=== PATIENT | male | born 1970 | race African-American/Black ===

== ENCOUNTER 2017-02-22 15:02 | Inpatient (IN) | payer OTHER ==
[2017-02-22] VITALS (7 sets, daily range): BP systolic 117–147; BP diastolic 64–93
[~2017-02-22] VITALS: Ht 177.8 cm; Wt 86.2 kg
--- NOTE | 2017-02-22 15:15 | Emergency Room Report ---
History of Present Illness General Chief Complaint: Abdominal Pain Source: Patient Present Illness HPI 46 YO Male presents to the ED C/O nausea and umbilical pain x 4 days with increased in pain, radiation to the right quadrant, and vomiting x 1 day. pt. rates pain as 8/10 in severity sharp in nature, and tenderness. denies blood in the vomit reports just acid. denies constipation or diarrhea. pt. denies hx of GERD denies fevers, reports chills. Denies CP, Palpitations, LOC, AMS, dizziness , Changes in Vision, Sensation, paresthesias, or a sudden severe headache. Allergies: Coded Allergies: No Known Allergies (Unverified , 02/22/17) Patient History Past Medical History: see triage record Past Surgical History: none Pertinent Family History: none Immunizations: UTD Reviewed Nursing Documentation: PMH: Agreed, PSxH: Agreed Nursing Documentation-PMH Past Medical History: No Stated History Review of Systems All Other Systems: negative except mentioned in HPI Physical Exam Vital Signs Date Time Temp Pulse Resp B/P Pulse Ox O2 Delivery O2 Flow Rate FiO2 02/22/17 15:11 98.1 92 20 160/54 98 Room Air Sp02 EP Interpretation: reviewed, abnormal - BP is elevated General Appearance: no apparent distress, alert, GCS 15, non-toxic Head: normocephalic, atraumatic Eyes: bilateral eye PERRL, bilateral eye normal inspection ENT: hearing grossly normal, normal pharynx, no angioedema, normal voice Neck: full range of motion, supple/symm/no masses Respiratory: chest non-tender, lungs clear, normal breath sounds, speaking full sentences Cardiovascular #1: regular rate, rhythm, no edema Gastrointestinal: normal bowel sounds, soft, no guarding, no rebound, tenderness - RLQ TTP, no peritoneal signs, no guarding. Rectal: deferred Genitourinary: normal inspection, no CVA tenderness Musculoskeletal: back normal, gait/station normal, normal range of motion, non- tender, no calf tenderness Neurologic: alert, oriented x3, responsive, motor strength/tone normal, sensory intact, speech normal Psychiatric: judgement/insight normal, memory normal, mood/affect normal Skin: normal color, no rash, warm/dry, well hydrated Lymphatic: no adenopathy Medical Decision Making PA Attestation Dr. stroud is my supervising Physician whom patient management has been discussed with. Diagnostic Impression: Primary Impression: Appendicitis, acute Qualified Codes: K35.80 - Unspecified acute appendicitis ER Course 46 YO Male presents to the ED C/O nausea and umbilical pain x 4 days with increased in pain, radiation to the right quadrant, and vomiting x 1 day. pt. rates pain as 8/10 in severity sharp in nature, and tenderness. denies blood in the vomit reports just acid. denies constipation or diarrhea. pt. denies hx of GERD denies fevers, reports chills. Ddx considered but are not limited to Diverticulitis, acute appendicitis, diarrhea,UC, PUD, GE, pancreatitis, gallstone Vital signs: are WNL, pt. is afebrile H&PE are most consistent with possible acute appendicitis ORDERS: -CBC: elevated WBC's at 12.5 - CMP: mild hyponatremia and chloride ( pt. was given fluids) - lipase: WNL -UA: rbc's otherwise unremarkable -EK BPM NSR, no acute ST changes, pt. not given ASA- interpreted by Dr. Fagan - CT Abdomen and Pelvis with contrast: Acute appendicitis without perf or abscess per radiology report. ED INTERVENTIONS: -- 1000NS - 20mg Pepcid IV - 3.75 G Zosyn IV -Pt. was offered pain medication but declined, pt. also declined anti-emetic. - General Surgery Consult: Dr. Olivarez DISCHARGE: At this time pt. is stable for d/c to home. Will provide printed patient care instructions, and any necessary prescriptions. Care plan and follow up instructions have been discussed with the patient prior to discharge. Labs Test 02/22/17 15:12 02/22/17 16:07 Urine Color Brown Urine Appearance Clear Urine pH 5 (4.5-8.0) Urine Specific [place] 1.020 (1.005-1.035) Urine Protein 2+ (NEGATIVE) Urine Glucose (UA) Negative (NEGATIVE) Urine Ketones 3+ (NEGATIVE) Urine Occult Blood Negative (NEGATIVE) Urine Nitrite Negative (NEGATIVE) Urine Bilirubin Negative (NEGATIVE) Urine Urobilinogen 4 MG/DL (0.0-1.0) Urine Leukocyte Esterase 1+ (NEGATIVE) Urine RBC 0-2 /HPF (0 - 0) Urine WBC 2-4 /HPF (0 - 0) Urine Squamous Epithelial Cells None /LPF (NONE/OCC) Urine Amorphous Sediment Few /LPF (NONE) Urine Bacteria Few /HPF (NONE) Urine Mucus Few /LPF (NONE/OCC) White Blood Count 12.0 K/UL (4.8-10.8) Red Blood Count 5.35 M/UL (4.70-6.10) Hemoglobin 16.9 G/DL (14.2-18.0) Hematocrit 47.8 % (42.0-52.0) Mean Corpuscular Volume 89 FL (80-99) Mean Corpuscular Hemoglobin 31.5 PG (27.0-31.0) Mean Corpuscular Hemoglobin Concent 35.3 G/DL (32.0-36.0) Red Cell Distribution Width 12.7 % (11.6-14.8) Platelet Count 167 K/UL (150-450) Mean Platelet Volume 12.1 FL (6.5-10.1) Neutrophils (%) (Auto) 68.3 % (45.0-75.0) Lymphocytes (%) (Auto) 20.7 % (20.0-45.0) Monocytes (%) (Auto) 9.0 % (1.0-10.0) Eosinophils (%) (Auto) 0.3 % (0.0-3.0) Basophils (%) (Auto) 1.7 % (0.0-2.0) Sodium Level 134 mEQ/L (135-145) Potassium Level 3.8 mEQ/L (3.4-4.9) Chloride Level 91 mEQ/L (98-107) Carbon Dioxide Level 26 mEQ/L (20-30) Anion Gap 17 (5-15) Blood Urea Nitrogen 16 mg/dL (7-23) Creatinine 1.2 mg/dL (0.7-1.2) Estimat Glomerular Filtration Rate > 60 mL/min (>60) Glucose Level 99 mg/dL (74-106) Calcium Level 10.4 mg/dL (8.6-10.2) Total Bilirubin 0.8 mg/dL (0.0-1.2) Aspartate Amino Transf (AST/SGOT) 27 U/L (5-40) Alanine Aminotransferase (ALT/SGPT) 26 U/L (3-41) Alkaline Phosphatase 66 U/L (40-129) Total Protein 8.8 g/dL (6.6-8.7) Albumin 4.4 g/dL (3.5-5.2) Globulin 4.4 g/dL Albumin/Globulin Ratio 1.0 (1.0-2.7) Lipase 24 U/L (< 60) EKG Diagnostic Results EP Interpretation: Dr. Fagan Rate: normal - 77 BPM Rhythm: NSR ST Segments: no acute changes ASA given to the pt in ED: No Last Vital Signs Date Time Temp Pulse Resp B/P Pulse Ox O2 Delivery O2 Flow Rate FiO2 02/22/17 15:11 98.1 92 20 160/54 98 Room Air Disposition: ADMITTED INPATIENT Condition: Serious Physician Consult: Darlene Arizmendi February 22, 2017 15:15
[2017-02-22 16:04] LABS: APPEARANCE,URINE CLEAR; KETONES,URINE 3+ (NEGATIVE); LEUKOCYTE ESTERASE ,URINE 1+ (NEGATIVE); NITRITE,URINE NEGATIVE (NEGATIVE); PH,URINE 5 (4.5-8.0); PROTEIN,URINE 2+ (NEGATIVE); UROBILINOGEN,URINE 4 MG/DL (0.0-1.0)
[2017-02-22 16:30] LABS: BACTERIA,URINE FEW /HPF; RBC,URINE 0-2 /HPF (0 - 0)
[2017-02-22 16:31] LABS: AMORPHOUS SEDIMENT,UR FEW /LPF; MUCUS,URINE FEW /LPF (NONE/OCC)
[2017-02-22 16:42] LABS: BASOPHILS % (AUTO) 1.7 % (0.0-2.0); EOSINOPHILS % (AUTO) 0.3 % (0.0-3.0); LYMPHOCYTES % (AUTO) 20.7 % (20.0-45.0); MEAN CORPUSCULAR HEMOGLOBIN 31.5 PG (27.0-31.0); MEAN CORPUSCULAR HGB CONC 35.3 G/DL (32.0-36.0); MEAN CORPUSCULAR VOLUME 89 FL (80-99); MEAN PLATELET VOLUME 12.1 FL (6.5-10.1); NEUTROPHILS % (AUTO) 68.3 % (45.0-75.0); PLATELET COUNT 167 K/UL (150-450); RED BLOOD COUNT 5.35 M/UL (4.70-6.10); RED CELL DISTRIBUTION WIDTH 12.7 % (11.6-14.8)
[2017-02-22] MEDS ORDERED: Famotidine 20 MG/ 2ML VIAL IVP ONE (17:00)
[2017-02-22 17:17] LABS: ALANINE AMINOTRANSFERASE 26 U/L (3-41); ANION GAP 17 (5-15); ASPARTATE AMINO TRANSFERASE 27 U/L (5-40); CALCIUM 10.4 mg/dL (8.6-10.2); CARBON DIOXIDE 26 mEQ/L (20-30); CHLORIDE 91 mEQ/L (98-107); CREATININE 1.2 mg/dL (0.7-1.2); GLOMERULAR FILTRATION RATE > 60 mL/min (>60); HEMOLYSIS 8; LIPASE 24 U/L (< 60); POTASSIUM 3.8 mEQ/L (3.4-4.9); SODIUM 134 mEQ/L (135-145); TOTAL PROTEIN 8.8 g/dL (6.6-8.7)
[2017-02-22] MEDS ORDERED: Zosyn 3.375gm inj ONE (19:05)
[2017-02-22] MEDS ORDERED: Piperacillin/Tazobactam 3.375 GM in NS 110 ML IVPB ONE (19:15)
[2017-02-22] MEDS ORDERED: Neostigmine 1mg/ml 10ml Inj ONE (20:00)
[2017-02-22] MEDS ORDERED: Midazolam 2mg/2ml Inj ONE (20:00)
[2017-02-22] MEDS ORDERED: Succinylcholine 20mg/ml 10ml vial ONE (20:00)
[2017-02-22] MEDS ORDERED: Sterile Water Irrig 1000ml IRRIG ONE (20:00)
[2017-02-22] MEDS ORDERED: NS Irrig 1000ml ONE (20:00)
[2017-02-22] MEDS ORDERED: fentaNYL 100 mcg/2 mL IV ONE (20:00)
[2017-02-22] MEDS ORDERED: Zemuron 50mg/5ml Inj IV ONE (20:00)
[2017-02-22] MEDS ORDERED: Morphine Sulfate 10mg/ml Inj ONE (20:00)
[2017-02-22] MEDS ORDERED: Propofol 10mg/ml 20ml IV ONE (20:00)
[2017-02-22] MEDS ORDERED: LR 1000ml ONE (20:00)
[2017-02-22] MEDS ORDERED: Ketorolac 30mg Inj ONE (20:00)
[2017-02-22] MEDS ORDERED: Glycopyrrolate 0.2mg/ml 1ml Vial ONE (20:00)
--- NOTE | 2017-02-22 20:16 | Pre-Procedure Note/Attestation ---
Pre-Procedure Note/Attestation Complete Prior to Procedure Planned Procedure: not applicable Procedure Narrative: Laparoscopic appendectomy possible open Indications for Procedure Pre-Operative Diagnosis: Acute appendicitis Attestation I attest that I discussed the nature of the procedure; its benefits; risks and complications; and alternatives (and the risks and benefits of such alternatives ), prior to the procedure, with the patient (or the patient's legal retail sales representative). I attest that, if there was a reasonable possibility of needing a blood transfusion, the patient (or the patient's legal retail sales representative) was given the [facility] standardized written summary, pursuant to the Dinesh Donald Blood Safety Act ([place] Health and Safety Code # 1645, as amended). I attest that I re-evaluated the patient just prior to the surgery and that there has been no change in the patient's H&P, except as documented below: CANDIE DRIVER February 22, 2017 20:16
[2017-02-22] MEDS ORDERED: Bupivacaine w/Epi 0.25% 30ml Vial INJ ONE (20:31)
[2017-02-22] MEDS ORDERED: Bacitracin 50000 Units Vial ONE (20:31)
--- NOTE | 2017-02-22 21:14 | Anethesia Preoperative Eval ---
Anesthesia Pre-op PMH/ROS General Date of Evaluation: February 22, 2017 Time of Evaluation: 20:08 Anesthesiologist: Robby ASA Score: ASA 2 Mallampati Score Class I : Soft palate, uvula, fauces, pillars visible Class II: Soft palate, uvula, fauces visible Class III: Soft palate, base of uvula visible Class IV: Only hard plate visible Mallampati Classification: Class II Surgeon: Sher Diagnosis: Acute appendicitis Surgical Procedure: Laparoscopic appendectomy Anesthesia History: none Social History: current smoker Family History: no anesthesia problems Allergies: Coded Allergies: No Known Allergies (Unverified , 02/22/17) Medications: see eMAR Past Medical History Pulmonary: Reports: FRANCISCO, Denies: COPD, asthma, other Gastrointestinal/Genitourinary: Reports: GERD, Denies: CRI, ESRD, other Neurologic/Psychiatric: Denies: CVA, TIA, dementia, depression/anxiety, other Endocrine: Denies: DM, hypothyroidism, other, steroids HEENT: Denies: [place] (L), [place] (R), cataract (L), cataract (R), glaucoma, other Hematology/Immune: Denies: DVT, anemia, bleeding disorder, other Musculoskeletal/Integumentary: Denies: DDD, DJD, OA, RA, edema, other PMH Narrative: acute abdominal pain nausea, vomiting at admission PSxH Narrative: None Anesthesia Pre-op Phys. Exam Physician Exam Last Vital Signs Date Time Temp Pulse Resp B/P Pulse Ox O2 Delivery O2 Flow Rate FiO2 02/22/17 20:38 77 16 120/66 99 Room Air 02/22/17 15:11 98.1 Constitutional: NAD Neurologic: CN 2-12 intact Cardiovascular: RRR, no M/R/G Respiratory: CTA Gastrointestinal: other - some tenderness Airway Exam Mallampati Score: Class II MO: full Neck: flexible ROM: full Teeth: missing, broken Dentures: no lower, no upper Anesthesia Pre-op A/P Labs Hematology Test 02/22/17 16:07 White Blood Count 12.0 K/UL (4.8-10.8) H Red Blood Count 5.35 M/UL (4.70-6.10) Hemoglobin 16.9 G/DL (14.2-18.0) Hematocrit 47.8 % (42.0-52.0) Mean Corpuscular Volume 89 FL (80-99) Mean Corpuscular Hemoglobin 31.5 PG (27.0-31.0) H Mean Corpuscular Hemoglobin Concent 35.3 G/DL (32.0-36.0) Red Cell Distribution Width 12.7 % (11.6-14.8) Platelet Count 167 K/UL (150-450) Mean Platelet Volume 12.1 FL (6.5-10.1) H Neutrophils (%) (Auto) 68.3 % (45.0-75.0) Lymphocytes (%) (Auto) 20.7 % (20.0-45.0) Monocytes (%) (Auto) 9.0 % (1.0-10.0) Eosinophils (%) (Auto) 0.3 % (0.0-3.0) Basophils (%) (Auto) 1.7 % (0.0-2.0) Chemistry Test 02/22/17 16:07 Sodium Level 134 mEQ/L (135-145) L Potassium Level 3.8 mEQ/L (3.4-4.9) Chloride Level 91 mEQ/L (98-107) L Carbon Dioxide Level 26 mEQ/L (20-30) Anion Gap 17 (5-15) H Blood Urea Nitrogen 16 mg/dL (7-23) Creatinine 1.2 mg/dL (0.7-1.2) Estimat Glomerular Filtration Rate > 60 mL/min (>60) Glucose Level 99 mg/dL (74-106) Calcium Level 10.4 mg/dL (8.6-10.2) H Total Bilirubin 0.8 mg/dL (0.0-1.2) Aspartate Amino Transf (AST/SGOT) 27 U/L (5-40) Alanine Aminotransferase (ALT/SGPT) 26 U/L (3-41) Alkaline Phosphatase 66 U/L (40-129) Total Protein 8.8 g/dL (6.6-8.7) H Albumin 4.4 g/dL (3.5-5.2) Globulin 4.4 g/dL Albumin/Globulin Ratio 1.0 (1.0-2.7) Lipase 24 U/L (< 60) Studies Pre-op Studies: EKG - NSR Risk Assessment & Plan Assessment: ASA 2E Plan: GA with ETT Status Change Before Surgery: No Pre-Antibiotics Drug: MIGUEL Arroyo M.D. February 22, 2017 21:14
[2017-02-22] MEDS ORDERED: LR 1000ml 1,000 ML IVLG SCH (21:17)
[2017-02-22] MEDS ORDERED: Ketorolac 30mg Inj IV PRN (21:30)
[2017-02-22] MEDS ORDERED: Hydromorphone 0.5mg/0.5ml inj IVP PRN ×2 (21:30→21:45)
[2017-02-22] MEDS ORDERED: Meperidine 25mg/0.5ml Inj IV PRN (21:30)
[2017-02-22] MEDS ORDERED: DiphenhydrAMINE 50mg/ml Inj IVP PRN (21:30)
--- NOTE | 2017-02-22 21:44 | Brief Operative Note ---
Immediate Post Operative Note Operative Note Pre-op Diagnosis: Acute appendicitis Procedure: lap appy Post-op Diagnosis: same as pre-op Findings: consistent w/pre-op dx studies Surgeon: MD Aleks Multifocal Lens Assembler: none Anesthesiologist: Dr. Bustamante Anesthesia: general Specimen: yes Complications: none Condition: stable Estimated Blood Loss: minimal Drains: none Implant(s) used?: No CANDIE DRIVER February 22, 2017 21:44
[2017-02-22] MEDS ORDERED: Acetaminophen 650 MG SUPP RECTAL PRN (21:45)
[2017-02-22] MEDS: D5 1/2NS w/KCl 20mEq 1,000 ML IV SCH (21:45)
[2017-02-22] MEDS ORDERED: HYDROmorphone 1mg/ml Carpuject IVP PRN (21:45)
--- NOTE | 2017-02-22 22:06 | Immediate Post-Op Evaluation ---
Immediate Post-Op Evalulation Immediate Post-Op Evalulation Procedure: Laparoscopic appendectomy Date of Evaluation: February 22, 2017 Time of Evaluation: 22:04 IV Fluids: 1000 Blood Products: none Estimated Blood Loss: min Urinary Output: none Blood Pressure Systolic: 140 Blood Pressure Diastolic: 85 Pulse Rate: 83 Respiratory Rate: 20 O2 Sat by Pulse Oximetry: 99 Temperature (Fahrenheit): 97.6 Pain Score (1-10): 1 Nausea: No Complications NONE Patient Status: reacts, patent, extubated, none Hydration Status: adequate MIGUEL ROWLEY M.D. February 22, 2017 22:06
--- NOTE | 2017-02-22 23:18 | Consultation ---
DATE OF CONSULTATION: 02/22/2017 PREOPERATIVE CONSULTATION CONSULTING PHYSICIAN: Beatrice Olivarez M.D. REQUESTING PHYSICIAN: Emergency room physician. REASON FOR CONSULTATION: Abdominal pain. HISTORY OF PRESENT ILLNESS: This is a 46-year-old male, who presented with abdominal pain for about four to five days. He stated that the pain started up on 02/17/2017 and it was at night and it was periumbilical and crampy in nature, but the pain was off and on, but today, the pain was more severe and he feels it more at the right lower quadrant. He has been nauseated and he has been anorexic. He denies fever, cough, dysuria, or frequency. He claims that before he taking the Red Bull, he had cramps in his abdomen, but it would resolve shortly, but this time the pain has persisted. PAST MEDICAL HISTORY: He denies allergies, asthma, diabetes, hypertension, and cardiac and renal diseases. SURGERIES: Hemorrhoidectomy. MEDICATIONS: None. SOCIAL HISTORY: The patient is a 46-year-old male, who is single, and father of two children. [place] and smokes and drinks occasionally. REVIEW OF SYSTEMS: Noncontributory. PHYSICAL EXAMINATION: GENERAL: The patient appeared to be a well-developed and well-nourished 46-year-old male, lying on the bed, and in no acute distress. HEENT: Head is normocephalic and atraumatic. Eyes, pupils are equal, round, and reactive to light. Mouth is clear. NECK: There is no palpable thyromegaly or adenopathy. CHEST: Clear to auscultation and percussion. HEART: There is no gallop or murmur. S1 and S2 are within normal limits. ABDOMEN: Soft and flat with tenderness at right lower quadrant. There is no rebound tenderness. He has a mild guarding. Bowel sounds are present and there is no palpable organomegaly. GENITALIA: Normal. EXTREMITIES: Within normal limits. LABORATORY DATA: CBC has shown a WBC of 12,000 with normal differential. Chemistry is normal. CAT scan of the abdomen has been interpreted as acute appendicitis. ASSESSMENT: Acute appendicitis. PLAN: After rehydration, the patient will undergo a laparoscopic appendectomy, possible open appendectomy. Risks and benefits have been explained to him. He understood and will karson the consent form. Beatrice Olivarez M.D. DR: HAROON JOB#: [id number] CC:
--- NOTE | 2017-02-23 01:48 | Operative Note - Dictated ---
DATE OF SURGERY: 02/22/2017 PREOPERATIVE DIAGNOSIS: Acute appendicitis. POSTOPERATIVE DIAGNOSIS: Acute appendicitis. OPERATION: Laparoscopy appendectomy. COMPLICATION: None. SURGEON: Beatrice Olivarez M.D. TECHNOLOGY SUPPORT ANALYST: None. ANESTHESIA: General with endotracheal tube. ANESTHESIOLOGIST: Felix Bustamante M.D. INDICATION: This is a 46-year-old male who presented with abdominal pain for five days. He stated the pain was crampy and basically periumbilical, but today it has been more at the right lower quadrant. He had anorexia and nausea. Physical examination showed tenderness of left lower quadrant. CBC showed a WBC of 12,000 with normal differential. But the CAT scan of the abdomen was interpreted as acute appendicitis. DESCRIPTION OF PROCEDURE: The patient was placed supine on the operating table. After general anesthesia with endotracheal tube, the abdomen was properly prepped and draped. The small incision was given above the umbilicus through which a Veress needle was introduced into the intraperitoneal cavity. This cavity was insufflated up to 15 mmHg and then the Veress needle was removed. A 5 mm trocar was placed in the intraperitoneal cavity through the incision above the umbilicus. Laparoscope and camera was introduced into the intraperitoneal cavity through the trocar above the umbilicus. Under direct vision, a 5 mm trocar was placed in the suprapubic area and a 12 mm trocar was placed at the left lower quadrant of the abdomen. Initially, a rapid exploration was performed which showed the diaphragms to be normal. The part of the stomach, which could be seen was normal. The liver and gallbladder was normal. Bowels were normal. The right lower quadrant cavity was explored and finally the cecum was identified. Further exploration was performed and the appendix was identified which was completely sub peritoneum. The appendix was dilated, hard, and inflamed. Initially, the peritoneum was incised and the appendix was gradually released. The mesoappendix was exposed and was gradually dissected and isolated. It was ligated and transected with the help of the GRIFFIN stapler and hemoclip. Finally, the full length of the appendix was completely released from the under the peritoneum and the base was exposed. The base of the appendix was ligated and transected with the help of another GRIFFIN stapler. The bleeding points were controlled. The appendix was removed from the intraperitoneal cavity through the incision at the left lower quadrant of the abdomen with the help of the Endo pouch. After removing the appendix, the intraperitoneal cavity and pelvis was copiously irrigated with antibiotic solution. Another exploration was performed. There was no complication or bleeding. The trocars were removed under direct vision. The incisions were infiltrated with total of 30 mL Marcaine. The subcutaneous tissue were approximated with 4-0 chromic and the skin incision was approximated with running subcuticular suture of 4-0 chromic. The patient tolerated the procedure very well and was transferred to recovery room in stable condition and extubated. The sponge and needle counts were correct. Estimated blood loss 10 mL. Condition of the patient at the end of procedure is stable. Beatrice Olivarez M.D. DR: Jasper JOB#: [id number] CC:
[2017-02-23] MEDS: Piperacillin/Tazobactam 3.375 GM in D5W 110 ML IVPB SCH ×3 (03:00→18:12)
[2017-02-23 04:00] VITALS: BP 118/71
[2017-02-23 06:10] LABS: EOSINOPHILS % (AUTO) 0.3 % (0.0-3.0); LYMPHOCYTES % (AUTO) 10.8 % (20.0-45.0); MEAN CORPUSCULAR HEMOGLOBIN 28.5 PG (27.0-31.0); MEAN CORPUSCULAR HGB CONC 32.5 G/DL (32.0-36.0); MEAN CORPUSCULAR VOLUME 87 FL (80-99); MEAN PLATELET VOLUME 11.6 FL (6.5-10.1); NEUTROPHILS % (AUTO) 78.9 % (45.0-75.0); PLATELET COUNT 151 K/UL (150-450); RED BLOOD COUNT 4.86 M/UL (4.70-6.10); RED CELL DISTRIBUTION WIDTH 12.4 % (11.6-14.8); WHITE BLOOD COUNT 14.3 K/UL (4.8-10.8)
[2017-02-23 06:42] LABS: ANION GAP 14 (5-15); CALCIUM 8.8 mg/dL (8.6-10.2); CARBON DIOXIDE 26 mEQ/L (20-30); CHLORIDE 96 mEQ/L (98-107); CREATININE 1.2 mg/dL (0.7-1.2); GLOMERULAR FILTRATION RATE > 60 mL/min (>60); HEMOLYSIS 1; POTASSIUM 4.2 mEQ/L (3.4-4.9); SODIUM 136 mEQ/L (135-145)
[2017-02-23] MEDS: D5 1/2NS w/KCl 20mEq 1,000 ML IV SCH (07:45)
[2017-02-23 07:53] VITALS: BP 106/56
[2017-02-23] MEDS: Pantoprazole Inj IVP SCH (08:23)
[2017-02-23] MEDS: Metoclopramide 10mg/2ml Inj IVP PRN (08:24)
--- NOTE | 2017-02-23 08:54 | General Surgery Progress Note ---
General Surgery-Progress Note Subjective Procedure Performed lap appy Objective Last 24 Hour Vital Signs Date Time Temp Pulse Resp B/P Pulse Ox O2 Delivery O2 Flow Rate FiO2 02/23/17 07:53 98.2 86 20 106/56 97 Nasal Cannula 02/23/17 04:00 98.1 86 17 118/71 99 Nasal Cannula 2.0 02/22/17 22:39 98.4 81 18 117/69 100 Nasal Cannula 2.0 02/22/17 22:30 77 18 121/64 99 Nasal Cannula 2.0 02/22/17 22:15 75 18 127/76 99 Nasal Cannula 2.0 02/22/17 22:06 83 20 99 02/22/17 22:03 82 18 140/85 99 Simple Mask 10.0 02/22/17 21:58 83 18 147/93 99 Simple Mask 10.0 02/22/17 21:53 98.5 88 18 134/83 99 Simple Mask 10.0 02/22/17 20:38 77 16 120/66 99 Room Air 02/22/17 16:30 73 18 139/80 100 Room Air 02/22/17 15:11 98.1 92 20 160/54 98 Room Air I&O Intake and Output 02/22/17 02/23/17 19:00 07:00 Intake Total 500 ml 1410 ml Output Total 100 ml Balance 500 ml 1310 ml Intake Oral 300 ml IV Total 500 ml 1110 ml Output Urine Total 100 ml # Voids 1 1 Dressing: dry Drains: none Abdomen: soft, flat, tenderness, absent bowel sounds Extremities: no edema, no tenderness Laboratory Tests Test 02/22/17 15:12 02/22/17 16:07 02/23/17 05:15 Urine Color Brown Urine Appearance Clear Urine pH 5 (4.5-8.0) Urine Specific [place] 1.020 (1.005-1.035) Urine Protein 2+ (NEGATIVE) H Urine Glucose (UA) Negative (NEGATIVE) Urine Ketones 3+ (NEGATIVE) H Urine Occult Blood Negative (NEGATIVE) Urine Nitrite Negative (NEGATIVE) Urine Bilirubin Negative (NEGATIVE) Urine Urobilinogen 4 MG/DL (0.0-1.0) H Urine Leukocyte Esterase 1+ (NEGATIVE) H Urine RBC 0-2 /HPF (0 - 0) H Urine WBC 2-4 /HPF (0 - 0) Urine Squamous Epithelial Cells None /LPF (NONE/OCC) Urine Amorphous Sediment Few /LPF (NONE) H Urine Bacteria Few /HPF (NONE) Urine Mucus Few /LPF (NONE/OCC) H White Blood Count 12.0 K/UL (4.8-10.8) H 14.3 K/UL (4.8-10.8) H Red Blood Count 5.35 M/UL (4.70-6.10) 4.86 M/UL (4.70-6.10) Hemoglobin 16.9 G/DL (14.2-18.0) 13.8 G/DL (14.2-18.0) L Hematocrit 47.8 % (42.0-52.0) 42.5 % (42.0-52.0) Mean Corpuscular Volume 89 FL (80-99) 87 FL (80-99) Mean Corpuscular Hemoglobin 31.5 PG (27.0-31.0) H 28.5 PG (27.0-31.0) Mean Corpuscular Hemoglobin Concent 35.3 G/DL (32.0-36.0) 32.5 G/DL (32.0-36.0) Red Cell Distribution Width 12.7 % (11.6-14.8) 12.4 % (11.6-14.8) Platelet Count 167 K/UL (150-450) 151 K/UL (150-450) Mean Platelet Volume 12.1 FL (6.5-10.1) H 11.6 FL (6.5-10.1) H Neutrophils (%) (Auto) 68.3 % (45.0-75.0) 78.9 % (45.0-75.0) H Lymphocytes (%) (Auto) 20.7 % (20.0-45.0) 10.8 % (20.0-45.0) L Monocytes (%) (Auto) 9.0 % (1.0-10.0) 9.0 % (1.0-10.0) Eosinophils (%) (Auto) 0.3 % (0.0-3.0) 0.3 % (0.0-3.0) Basophils (%) (Auto) 1.7 % (0.0-2.0) 1.0 % (0.0-2.0) Sodium Level 134 mEQ/L (135-145) L 136 mEQ/L (135-145) Potassium Level 3.8 mEQ/L (3.4-4.9) 4.2 mEQ/L (3.4-4.9) Chloride Level 91 mEQ/L (98-107) L 96 mEQ/L (98-107) L Carbon Dioxide Level 26 mEQ/L (20-30) 26 mEQ/L (20-30) Anion Gap 17 (5-15) H 14 (5-15) Blood Urea Nitrogen 16 mg/dL (7-23) 16 mg/dL (7-23) Creatinine 1.2 mg/dL (0.7-1.2) 1.2 mg/dL (0.7-1.2) Estimat Glomerular Filtration Rate > 60 mL/min (>60) > 60 mL/min (>60) Glucose Level 99 mg/dL (74-106) 106 mg/dL (74-106) Calcium Level 10.4 mg/dL (8.6-10.2) H 8.8 mg/dL (8.6-10.2) Total Bilirubin 0.8 mg/dL (0.0-1.2) Aspartate Amino Transf (AST/SGOT) 27 U/L (5-40) Alanine Aminotransferase (ALT/SGPT) 26 U/L (3-41) Alkaline Phosphatase 66 U/L (40-129) Total Protein 8.8 g/dL (6.6-8.7) H Albumin 4.4 g/dL (3.5-5.2) Globulin 4.4 g/dL Albumin/Globulin Ratio 1.0 (1.0-2.7) Lipase 24 U/L (< 60) Assessment Additional Comments S/P Lap Appy Plan Additional Comments Continue current treatment CANDIE DRIVER February 23, 2017 08:54
[2017-02-23] MEDS: Pericolace tab ORAL SCH ×2 (09:01→18:12)
--- NOTE | 2017-02-23 09:13 | Diagnostic Imaging Report ---
Clinical Indication: Abdominal pain Technique: Patient given oral contrast. IV administration nonionic contrast. Venous phase spiral acquisition obtained through the abdomen and pelvis. Multiplanar reconstructions were generated. Total dose length product 891 mGycm. CTDIvol(s) 15 mGy. Dose reduction achieved using automated exposure control Comparison: None Findings: The appendix is thickened, fluid-filled, and there is periappendiceal inflammation. No extraluminal gas or fluid demonstrated. No contrast is seen within the appendix. There is colonic diverticulosis. No evidence of diverticulitis. No small bowel distention. Contrast traverses the entirety of the small bowel well into the colon. The distal esophagus, stomach, duodenum are unremarkable. The liver demonstrates a 1 cm low-attenuation lesion within segment 2 which is not clearly cystic. No other hepatic abnormality demonstrated. The gallbladder, bile ducts, pancreas, spleen, adrenals, kidneys are unremarkable. No retroperitoneal or mesenteric mass or adenopathy. No pelvic mass or adenopathy. The included lung bases are clear. The bones are unremarkable. Impression: Findings consistent with uncomplicated acute appendicitis 1 cm low-attenuation lesion within segment 2 of the liver, possibly but not clearly cystic. Recommend ultrasound or MRI for better characterization. This finding discussed by phone with Dr. Wilkerson of interpretation Diverticulosis. No evidence of diverticulitis Findings agree with the preliminary interpretation provided overnight by Dr. Mendieta The CT scanner at [facility] is accredited by the [place] [employer] and the scans are performed using protocols designed to limit radiation exposure to as low as reasonably achievable to attain images of sufficient resolution adequate for diagnostic evaluation.
[2017-02-23 12:01] VITALS: BP 108/64
--- NOTE | 2017-02-23 14:09 | Infectious Diseases Prog Note ---
Assessment/Plan Problems: (1) Appendicitis, acute Assessment & Plan: had surgical resection with no evidence of perforation, continue zosyn for now, general surgery is following (2) Sepsis Assessment & Plan: due to the above, continue zosyn , monitor WBC (3) Abdominal pain Assessment & Plan: due to the above continue pain medicine as per surgery Subjective Allergies: Coded Allergies: No Known Allergies (Unverified , 02/22/17) Objective Vital Signs Last 24 Hour Vital Signs Date Time Temp Pulse Resp B/P Pulse Ox O2 Delivery O2 Flow Rate FiO2 02/23/17 12:01 99.5 80 20 108/64 97 Nasal Cannula 02/23/17 07:53 98.2 86 20 106/56 97 Nasal Cannula 02/23/17 04:00 98.1 86 17 118/71 99 Nasal Cannula 2.0 02/22/17 22:39 98.4 81 18 117/69 100 Nasal Cannula 2.0 02/22/17 22:30 77 18 121/64 99 Nasal Cannula 2.0 02/22/17 22:15 75 18 127/76 99 Nasal Cannula 2.0 02/22/17 22:06 83 20 99 02/22/17 22:03 82 18 140/85 99 Simple Mask 10.0 02/22/17 21:58 83 18 147/93 99 Simple Mask 10.0 02/22/17 21:53 98.5 88 18 134/83 99 Simple Mask 10.0 02/22/17 20:38 77 16 120/66 99 Room Air 02/22/17 16:30 73 18 139/80 100 Room Air 02/22/17 15:11 98.1 92 20 160/54 98 Room Air Height (Feet): 5 Height (Inches): 10.00 Weight (Pounds): 190 Laboratory Tests Test 02/22/17 15:12 02/22/17 16:07 02/23/17 05:15 Urine Color Brown Urine Appearance Clear Urine pH 5 (4.5-8.0) Urine Specific [place] 1.020 (1.005-1.035) Urine Protein 2+ (NEGATIVE) H Urine Glucose (UA) Negative (NEGATIVE) Urine Ketones 3+ (NEGATIVE) H Urine Occult Blood Negative (NEGATIVE) Urine Nitrite Negative (NEGATIVE) Urine Bilirubin Negative (NEGATIVE) Urine Urobilinogen 4 MG/DL (0.0-1.0) H Urine Leukocyte Esterase 1+ (NEGATIVE) H Urine RBC 0-2 /HPF (0 - 0) H Urine WBC 2-4 /HPF (0 - 0) Urine Squamous Epithelial Cells None /LPF (NONE/OCC) Urine Amorphous Sediment Few /LPF (NONE) H Urine Bacteria Few /HPF (NONE) Urine Mucus Few /LPF (NONE/OCC) H White Blood Count 12.0 K/UL (4.8-10.8) H 14.3 K/UL (4.8-10.8) H Red Blood Count 5.35 M/UL (4.70-6.10) 4.86 M/UL (4.70-6.10) Hemoglobin 16.9 G/DL (14.2-18.0) 13.8 G/DL (14.2-18.0) L Hematocrit 47.8 % (42.0-52.0) 42.5 % (42.0-52.0) Mean Corpuscular Volume 89 FL (80-99) 87 FL (80-99) Mean Corpuscular Hemoglobin 31.5 PG (27.0-31.0) H 28.5 PG (27.0-31.0) Mean Corpuscular Hemoglobin Concent 35.3 G/DL (32.0-36.0) 32.5 G/DL (32.0-36.0) Red Cell Distribution Width 12.7 % (11.6-14.8) 12.4 % (11.6-14.8) Platelet Count 167 K/UL (150-450) 151 K/UL (150-450) Mean Platelet Volume 12.1 FL (6.5-10.1) H 11.6 FL (6.5-10.1) H Neutrophils (%) (Auto) 68.3 % (45.0-75.0) 78.9 % (45.0-75.0) H Lymphocytes (%) (Auto) 20.7 % (20.0-45.0) 10.8 % (20.0-45.0) L Monocytes (%) (Auto) 9.0 % (1.0-10.0) 9.0 % (1.0-10.0) Eosinophils (%) (Auto) 0.3 % (0.0-3.0) 0.3 % (0.0-3.0) Basophils (%) (Auto) 1.7 % (0.0-2.0) 1.0 % (0.0-2.0) Sodium Level 134 mEQ/L (135-145) L 136 mEQ/L (135-145) Potassium Level 3.8 mEQ/L (3.4-4.9) 4.2 mEQ/L (3.4-4.9) Chloride Level 91 mEQ/L (98-107) L 96 mEQ/L (98-107) L Carbon Dioxide Level 26 mEQ/L (20-30) 26 mEQ/L (20-30) Anion Gap 17 (5-15) H 14 (5-15) Blood Urea Nitrogen 16 mg/dL (7-23) 16 mg/dL (7-23) Creatinine 1.2 mg/dL (0.7-1.2) 1.2 mg/dL (0.7-1.2) Estimat Glomerular Filtration Rate > 60 mL/min (>60) > 60 mL/min (>60) Glucose Level 99 mg/dL (74-106) 106 mg/dL (74-106) Calcium Level 10.4 mg/dL (8.6-10.2) H 8.8 mg/dL (8.6-10.2) Total Bilirubin 0.8 mg/dL (0.0-1.2) Aspartate Amino Transf (AST/SGOT) 27 U/L (5-40) Alanine Aminotransferase (ALT/SGPT) 26 U/L (3-41) Alkaline Phosphatase 66 U/L (40-129) Total Protein 8.8 g/dL (6.6-8.7) H Albumin 4.4 g/dL (3.5-5.2) Globulin 4.4 g/dL Albumin/Globulin Ratio 1.0 (1.0-2.7) Lipase 24 U/L (< 60) Current Medications Medications (Trade) Dose Ordered Sig/Samra Route PRN Reason Start Time Stop Time Status Last Admin Dose Admin Acetaminophen 650 mg 650 mg Q4H PRN RECTAL FEVER 02/22/17 21:45 03/24/17 21:44 Dextrose/ Electrolytes (D5 0.45%NS W/ KCl 20mEq) 1,000 ml @ 100 mls/hr Q10H IV 02/22/17 21:45 03/24/17 21:44 02/22/17 21:45 Hydromorphone HCl (Dilaudid) 0.5 mg Q3H PRN IVP Pain Score 1-3 02/22/17 21:45 03/01/17 21:44 02/23/17 08:24 Hydromorphone HCl (Dilaudid) 1 mg Q3H PRN IVP pain score 4-6 02/22/17 21:45 03/01/17 21:44 02/23/17 12:20 Metoclopramide HCl (Reglan) 10 mg Q6H PRN IVP Nausea & Vomiting 02/22/17 21:45 03/24/17 21:44 02/23/17 08:24 Ondansetron HCl (Zofran) 4 mg Q6H PRN IVP Nausea & Vomiting 02/22/17 21:45 03/24/17 21:44 Pantoprazole (Protonix) 40 mg DAILY IVP 02/23/17 09:00 03/25/17 08:59 02/23/17 08:23 Piperacillin Sod/ Tazobactam Sod/ Dextrose (Zosyn/D5W) 110 ml @ 27.5 mls/hr Q8H IVPB 02/23/17 03:00 03/02/17 02:59 02/23/17 10:43 Senna/Docusate Sodium ([place]-Colace) 1 ea TWICE A DAY ORAL 02/23/17 09:00 03/25/17 08:59 02/23/17 09:01 Keisha Myers M.D. February 23, 2017 14:09
[2017-02-23 16:04] VITALS: BP 118/64
--- NOTE | 2017-02-23 16:22 | Cardiology Report ---
APPROVED REPORT EKG Measurement Heart [id number] [place] [id number] Normal sinus rhythm Normal ECG
--- NOTE | 2017-02-23 17:33 | 48 Hour Post Anesthesia Eval ---
Post Anesthesia Evaluation Procedure: Laparoscopic appendectomy Date of Evaluation: February 23, 2017 Time of Evaluation: 14:25 Blood Pressure Systolic: 108 0: 64 Pulse Rate: 80 Respiratory Rate: 20 Temperature (Fahrenheit): 99.5 O2 Sat by Pulse Oximetry: 97 Airway: patent Nausea: No Vomiting: No Pain Intensity: 0 Hydration Status: adequate Cardiopulmonary Status: at baseline Mental Status/LOC: patient returned to baseline Post-Anesthesia Complications: 0 Follow-up care needed: N/A - further care as per primary team KRISTINE CATHERINE M.D. February 23, 2017 17:33
--- NOTE | 2017-02-23 20:38 | History and Physical Report ---
DATE OF ADMISSION: 02/22/2017 HISTORY OF PRESENT ILLNESS: The patient came in with abdominal pain, nausea, and chills. He had an emergent appendectomy by Dr. Olivarez on the day that he was admitted to the hospital. The patient still has some abdominal pain. Denies nausea or vomiting. Denies chills at this point. PAST MEDICAL HISTORY: GERD and hemorrhoids. PAST SURGICAL HISTORY: Hemorrhoidectomy. MEDICATIONS: None. SOCIAL HISTORY: The patient has a history of smoking. No history of drug or alcohol abuse. FAMILY HISTORY: Noncontributory. SOCIAL HISTORY: As mentioned. REVIEW OF SYSTEMS: HEENT: Denies headaches. Respiratory: Denies shortness of breath. Denies cough. Cardiovascular: Denies chest pain. GI: He does have abdominal pain. He did have vomiting as well, but denies diarrhea. Extremities: Denies pain in the lower extremities. 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 PHYSICAL EXAMINATION: VITAL SIGNS: Temperature is basically 98.4 degrees, pulse 81, and blood pressure 117/69. HEENT: PERRLA. NECK: Supple. No lymphadenopathy. CHEST: Clear to auscultation. GI: Right quadrant still tenderness around the surgical site. Positive bowel sounds. EXTREMITIES: No edema. Reflexes are equal on both sides. Able to move all four extremities. LABORATORY DATA: Laboratory shah, WBC initially was 12, hemoglobin 16.9, and platelets of 167,000. Sodium 134, potassium 3.8, BUN of 16, creatinine 1.2, and glucose of 99. ASSESSMENT: Elevated calcium. PLAN: I have asked Dr. Kirkpatrick to take care of the elevated calcium. Dr. Olivarez has emergently taken the patient for operating room and had appendectomy and antibiotics per Dr. Myers. Kay Martinez M.D. DR: RENE JOB#: [id number] CC:
[2017-02-23 20:45] VITALS: BP 128/63
--- NOTE | 2017-02-23 20:48 | Consultation ---
DATE OF CONSULTATION: 02/23/2017 INFECTIOUS DISEASE CONSULTATION REFERRING PHYSICIAN: Kay Martinez M.D. REASON FOR CONSULTATION: Acute sudden deaths and appendicitis. Recommendation for antibiotics therapy. HISTORY OF PRESENT ILLNESS: The patient is a 46-year-old male with no significant past medical history, who presented to [facility] for worsening lower abdominal pain for the last couple of days. The patient has this pain on and off for a long time. It gets worse with activities whenever he pushes or carry heavy stuff, but last 48 hours it has been progressive at 10/10 localized in the right lower quadrant and left periumbilical area. Denied any fever or chills. He had some nausea and vomiting couple of times. No blood in the stool. No diarrhea. The patient had a CT scan in the emergency room showed evidence of appendicitis with no perforation. He was taken to the [place] today by the General surgery and had appendectomy successfully done. There was no evidence of necrosis, gangrene, or perforation, as per surgical report. The patient was started on Zosyn and I was consulted by the primary provider for antibiotics recommendation and further management. REVIEW OF SYSTEMS: A 12-point of system reviewed were all negative apart from the one I mentioned above in my History and Physical. PAST MEDICAL HISTORY: Negative. PAST SURGICAL HISTORY: Negative. ALLERGIES: No known drug allergy. MEDICATIONS: He was started on Zosyn by the General surgery. The rest of his medications please refer to MAR. FAMILY HISTORY: Noncontributory. SOCIAL HISTORY: Denies using any drugs, tobacco, or alcohol. He is employed. LABORATORY DATA: Showed white count of 14.3, hemoglobin of 13.8, and platelet count of 151,000. BUN of 16 and creatinine of 1.2. Urinalysis showed +1 leukocyte esterase, and few mucus in the urine. IMAGING STUDIES: CT scan of the abdomen and pelvis showed uncomplicated acute appendicitis with a 1 cm low attenuation lesion within the segment two at the liver possibly, but not clearly cystic. PHYSICAL EXAMINATION: VITAL SIGNS: Temperature 99.5 degrees, pulse 80, respirations 20, blood pressure 108/64, and pulse oximetry 97% on two liters nasal cannula. GENERAL: The patient is a middle-aged male, up in bed, awake, alert, not in distress. HEENT: Normocephalic and atraumatic. Pupils are reactive to light. Moist oral mucosa. No exudate. NECK: Supple. No lymphadenopathy. CARDIOVASCULAR: Regular rate and rhythm. No murmur or gallop. LUNGS: Clear bilaterally. No wheezing or rhonchi. ABDOMEN: Soft, nontender, and nondistended. Positive bowel sounds. No hepatosplenomegaly or ascites. EXTREMITIES: No edema or cyanosis. Right side jugular vein drainage from the abdomen with bloody fluid in it. ASSESSMENT AND PLAN: 1. Acute appendicitis. Agree with Zosyn. He was uncomplicated. We will continue Zosyn at least for 48 hours after his surgery. 2. Sepsis due to the above. Continue Zosyn. Monitor white blood cells. 3. Abdominal pain due to the above. Continue pain management as per surgery. Keisha Myers M.D. DR: SHAN JOB#: [id number] CC:
[2017-02-24] VITALS: BP 126/65
[2017-02-24 04:00] VITALS: BP 122/73
[2017-02-24] MEDS: Piperacillin/Tazobactam 3.375 GM in D5W 110 ML IVPB SCH ×3 (04:03→18:02)
--- NOTE | 2017-02-24 07:39 | Consultation ---
DATE OF CONSULTATION: 02/23/2017 GASTROENTEROLOGY CONSULTATION REPORT: CHIEF COMPLAINT: I was asked to see this patient for postoperative followup after appendix operation. HISTORY OF PRESENT ILLNESS: The patient is a pleasant 46-year-old man, who came to the emergency room with new onset abdominal pain for about four to five days. The patient states the pain was periumbilical and came to emergency room where he underwent a CT scan showing appendicitis. He was taken to the operating room last night and he is postoperative day 1. He feels better although he has some abdominal distention and a minimal amount of clear liquid diet has caused him to have further discomfort. The patient has no nausea or vomiting and no bowel movements. PAST MEDICAL HISTORY: History of hemorrhoids status post hemorrhoidectomy and status post appendectomy. MEDICATIONS: See chart list for details. SOCIAL HISTORY: The patient smokes half pack cigarettes a day. He does not drink alcohol. He is a . FAMILY HISTORY: Noncontributory. REVIEW OF SYSTEMS: Otherwise negative. PHYSICAL EXAMINATION: GENERAL: The patient is a pleasant man, seen in his room HEENT: Normocephalic and atraumatic. Sclerae anicteric. Oropharynx clear. NECK: Supple. CHEST: Clear to auscultation. CARDIOVASCULAR: Revealed regular rate. ABDOMEN: Mildly distended and tympanic. There was mild tenderness appropriate for the surgery done last night, otherwise unremarkable. EXTREMITIES: Revealed no edema. NEUROLOGIC: Nonfocal. LABORATORY DATA: Noted. ASSESSMENT: This patient presented with acute appendicitis and he is postoperative day 1. He seems to have abdominal distention and ileus which is expected in the postoperative setting. It has only been approximately 12 hours postoperative and he should be observed for recovery of bowel function. I have advised the patient to hold off on any further clear liquids until he has had some reduction of his distention and perhaps passage of gas. I will follow this patient closely with you. He will be advised to undergo an outpatient colonoscopy once he recovers from his acute illness since he is and over age 45 . Thank you for asking me to participate in the care of this patient. Elsy Betetncourt M.D. DR: Rosales JOB#: [id number] CC:
[2017-02-24 07:58] VITALS: BP 133/69
[2017-02-24 08:13] LABS: ANION GAP 14 (5-15); CALCIUM 9.3 mg/dL (8.6-10.2); CARBON DIOXIDE 27 mEQ/L (20-30); CHLORIDE 91 mEQ/L (98-107); CREATININE 1.3 mg/dL (0.7-1.2); GLOMERULAR FILTRATION RATE > 60 mL/min (>60); HEMOLYSIS 11; POTASSIUM 3.8 mEQ/L (3.4-4.9); SODIUM 132 mEQ/L (135-145)
[2017-02-24 08:17] LABS: BASOPHILS % (AUTO) 1.7 % (0.0-2.0); EOSINOPHILS % (AUTO) 0.6 % (0.0-3.0); LYMPHOCYTES % (AUTO) 16.3 % (20.0-45.0); MEAN CORPUSCULAR HEMOGLOBIN 31.2 PG (27.0-31.0); MEAN CORPUSCULAR HGB CONC 34.5 G/DL (32.0-36.0); MEAN CORPUSCULAR VOLUME 90 FL (80-99); MEAN PLATELET VOLUME 10.3 FL (6.5-10.1); MONOCYTES % (AUTO) 10.8 % (1.0-10.0); NEUTROPHILS % (AUTO) 70.7 % (45.0-75.0); PLATELET COUNT 154 K/UL (150-450); RED BLOOD COUNT 4.85 M/UL (4.70-6.10); RED CELL DISTRIBUTION WIDTH 12.5 % (11.6-14.8); WHITE BLOOD COUNT 12.3 K/UL (4.8-10.8)
[2017-02-24] MEDS: Pantoprazole Inj IVP SCH (08:57)
[2017-02-24] MEDS: Pericolace tab ORAL SCH ×3 (08:57→18:00)
[2017-02-24 12:00] VITALS: BP 126/74
--- NOTE | 2017-02-24 12:00 | General Progress Note ---
Assessment/Plan Assessment/Plan Assessment - acute appendicitis - POD 2 s/p appy - post op gut dysmotility - leukocytosis Recommendations - NPO or just sips of clears - OOB - anti emetics - PPI - surgical f/u Subjective Allergies: Coded Allergies: No Known Allergies (Unverified , 02/22/17) Subjective c/o N/V on clears some flatus, (+) BM but abdomen still distended Objective Last 24 Hour Vital Signs Date Time Temp Pulse Resp B/P Pulse Ox O2 Delivery O2 Flow Rate FiO2 02/24/17 07:58 98.4 91 20 133/69 95 Room Air 02/24/17 04:00 99.3 87 16 122/73 96 Room Air 02/24/17 00:00 98.8 90 16 126/65 99 Room Air 02/23/17 22:53 100.0 02/23/17 20:45 100.9 94 16 128/63 98 Room Air 02/23/17 17:33 80 20 97 02/23/17 16:04 97.5 84 19 118/64 95 Nasal Cannula 02/23/17 12:01 99.5 80 20 108/64 97 Nasal Cannula Intake and Output 02/23/17 02/24/17 19:00 07:00 Intake Total 310.0 ml 700 ml Output Total 200 ml 400 ml Balance 110.0 ml 300 ml Intake Oral 700 ml IV Total 310.0 ml Output Urine Total 200 ml 400 ml # Voids 1 2 Laboratory Tests 02/24/17 07:45: White Blood Count 12.3H, Red Blood Count 4.85, Hemoglobin 15.1, Hematocrit 43.8 , Mean Corpuscular Volume 90, Mean Corpuscular Hemoglobin 31.2H, Mean Corpuscular Hemoglobin Concent 34.5, Red Cell Distribution Width 12.5, Platelet Count 154, Mean Platelet Volume 10.3H, Neutrophils (%) (Auto) 70.7, Lymphocytes (%) (Auto) 16.3L, Monocytes (%) (Auto) 10.8H, Eosinophils (%) (Auto) 0.6, Basophils (%) (Auto) 1.7, Sodium Level 132L, Potassium Level 3.8, Chloride Level 91L, Carbon Dioxide Level 27, Anion Gap 14, Blood Urea Nitrogen 13, Creatinine 1.3H, Estimat Glomerular Filtration Rate > 60, Glucose Level 119H, Calcium Level 9.3 Height (Feet): 5 Height (Inches): 10.00 Weight (Pounds): 190 Objective WDWN AA man NCAT supple CTA RRR abd distended, tympanitic no edema RALPH GRAY February 24, 2017 12:00
--- NOTE | 2017-02-24 12:04 | General Surgery Progress Note ---
General Surgery-Progress Note Subjective Procedure Performed lap appy Symptoms: BM Objective Last 24 Hour Vital Signs Date Time Temp Pulse Resp B/P Pulse Ox O2 Delivery O2 Flow Rate FiO2 02/24/17 07:58 98.4 91 20 133/69 95 Room Air 02/24/17 04:00 99.3 87 16 122/73 96 Room Air 02/24/17 00:00 98.8 90 16 126/65 99 Room Air 02/23/17 22:53 100.0 02/23/17 20:45 100.9 94 16 128/63 98 Room Air 02/23/17 17:33 80 20 97 02/23/17 16:04 97.5 84 19 118/64 95 Nasal Cannula I&O Intake and Output 02/23/17 02/24/17 19:00 07:00 Intake Total 310.0 ml 700 ml Output Total 200 ml 400 ml Balance 110.0 ml 300 ml Intake Oral 700 ml IV Total 310.0 ml Output Urine Total 200 ml 400 ml # Voids 1 2 Dressing: dry Respiratory: clear Abdomen: soft, distended, present bowel sounds Extremities: no edema, no tenderness Laboratory Tests Test 02/24/17 07:45 White Blood Count 12.3 K/UL (4.8-10.8) H Red Blood Count 4.85 M/UL (4.70-6.10) Hemoglobin 15.1 G/DL (14.2-18.0) Hematocrit 43.8 % (42.0-52.0) Mean Corpuscular Volume 90 FL (80-99) Mean Corpuscular Hemoglobin 31.2 PG (27.0-31.0) H Mean Corpuscular Hemoglobin Concent 34.5 G/DL (32.0-36.0) Red Cell Distribution Width 12.5 % (11.6-14.8) Platelet Count 154 K/UL (150-450) Mean Platelet Volume 10.3 FL (6.5-10.1) H Neutrophils (%) (Auto) 70.7 % (45.0-75.0) Lymphocytes (%) (Auto) 16.3 % (20.0-45.0) L Monocytes (%) (Auto) 10.8 % (1.0-10.0) H Eosinophils (%) (Auto) 0.6 % (0.0-3.0) Basophils (%) (Auto) 1.7 % (0.0-2.0) Sodium Level 132 mEQ/L (135-145) L Potassium Level 3.8 mEQ/L (3.4-4.9) Chloride Level 91 mEQ/L (98-107) L Carbon Dioxide Level 27 mEQ/L (20-30) Anion Gap 14 (5-15) Blood Urea Nitrogen 13 mg/dL (7-23) Creatinine 1.3 mg/dL (0.7-1.2) H Estimat Glomerular Filtration Rate > 60 mL/min (>60) Glucose Level 119 mg/dL (74-106) H Calcium Level 9.3 mg/dL (8.6-10.2) Assessment Additional Comments S/P Lap Appy Plan Additional Comments Continue current treatment he vomited CANDIE DRIVER February 24, 2017 12:04
--- NOTE | 2017-02-24 12:39 | Diagnostic Imaging Report ---
Indications: Abdominal pain, recent appendectomy Technique: Transabdominal real-time grayscale and duplex Doppler imaging of the upper abdomen and retroperitoneum was performed. Findings: Comparison: CT abdomen pelvis 02/22/2017. Patient's body habitus attenuates sonographic beam penetration, limiting evaluation. Liver normal size and surface contour, parenchymal echogenicity. Left hepatic lobe lesion seen on CT scan is not currently identified. Gallbladder unremarkable. No intraluminal stones or sludge. No mural thickening or adjacent fluid collections. Sonographic Valentine sign negative.. Bile ducts normal caliber. Common bile duct 6 mm. Pancreas head and body suboptimally visualized without obvious abnormality; tail completely obscured. Spleen unremarkable. Right kidney unremarkable. Left kidney unremarkable. Proximal abdominal aorta, intrahepatic portion of inferior vena cava patent, normal caliber. Mid and distal abdominal aorta obscured. Duplex Doppler imaging demonstrates antegrade flow in splenic, portal, hepatic veins. No ascites. IMPRESSION: Nonvisualization of CT liver lesion, favors a solid or cystic etiology. Multiphasic contrast-enhanced CT scan or MRI of the liver, liver mass protocol, recommended for further evaluation. Suboptimal visualization of pancreas, abdominal aorta Remainder of exam unremarkable, limited as described.
--- NOTE | 2017-02-24 12:46 | General Progress Note ---
Assessment/Plan Problem List: (1) Abdominal pain ICD Codes: R10.9 - Unspecified abdominal pain SNOMED: 41891536 Qualifiers: Qualified Codes: R10.31 - Right lower quadrant pain (2) Appendicitis, acute ICD Codes: K35.80 - Unspecified acute appendicitis SNOMED: [id number] Qualifiers: Qualified Codes: K35.80 - Unspecified acute appendicitis Status: progressing Assessment/Plan s/p appendectomy abx per id dc if ok and ordered by surgeon Subjective ROS Limited/Unobtainable: Yes Constitutional: Reports: no symptoms Allergies: Coded Allergies: No Known Allergies (Unverified , 02/22/17) Objective Last 24 Hour Vital Signs Date Time Temp Pulse Resp B/P Pulse Ox O2 Delivery O2 Flow Rate FiO2 02/24/17 07:58 98.4 91 20 133/69 95 Room Air 02/24/17 04:00 99.3 87 16 122/73 96 Room Air 02/24/17 00:00 98.8 90 16 126/65 99 Room Air 02/23/17 22:53 100.0 02/23/17 20:45 100.9 94 16 128/63 98 Room Air 02/23/17 17:33 80 20 97 02/23/17 16:04 97.5 84 19 118/64 95 Nasal Cannula Intake and Output 02/23/17 02/24/17 19:00 07:00 Intake Total 310.0 ml 700 ml Output Total 200 ml 400 ml Balance 110.0 ml 300 ml Intake Oral 700 ml IV Total 310.0 ml Output Urine Total 200 ml 400 ml # Voids 1 2 Laboratory Tests 02/24/17 07:45: White Blood Count 12.3H, Red Blood Count 4.85, Hemoglobin 15.1, Hematocrit 43.8 , Mean Corpuscular Volume 90, Mean Corpuscular Hemoglobin 31.2H, Mean Corpuscular Hemoglobin Concent 34.5, Red Cell Distribution Width 12.5, Platelet Count 154, Mean Platelet Volume 10.3H, Neutrophils (%) (Auto) 70.7, Lymphocytes (%) (Auto) 16.3L, Monocytes (%) (Auto) 10.8H, Eosinophils (%) (Auto) 0.6, Basophils (%) (Auto) 1.7, Sodium Level 132L, Potassium Level 3.8, Chloride Level 91L, Carbon Dioxide Level 27, Anion Gap 14, Blood Urea Nitrogen 13, Creatinine 1.3H, Estimat Glomerular Filtration Rate > 60, Glucose Level 119H, Calcium Level 9.3 Height (Feet): 5 Height (Inches): 10.00 Weight (Pounds): 190 EENT: PERRL/EOMI Neck: supple Cardiovascular: normal rate Respiratory/Chest: lungs clear Kay Martinez MD February 24, 2017 12:46
--- NOTE | 2017-02-24 14:25 | Diagnostic Imaging Report ---
Indications: Abdominal pain and distention, recently status post appendectomy Technique: Portable supine AP abdomen Findings: Comparison: CT abdomen pelvis 02/22/2017 Mild gaseous distention of multiple small bowel loops, no stacked appearance. Oral contrast scattered throughout nondilated colon to rectum. No obvious mural thickening. Suggestion of minimal free air along the undersurface of the liver and left hemidiaphragm.. Surgical clips right lower quadrant. IMPRESSION: Interval right lower quadrant surgery compatible with patient's clinical history Suggestion of mild pneumoperitoneum, within normal limits for recent surgery Mild small bowel dilation, favor ileus
--- NOTE | 2017-02-24 15:04 | Infectious Diseases Prog Note ---
Assessment/Plan Problems: (1) Appendicitis, acute Assessment & Plan: had surgical resection with no evidence of perforation, continue zosyn for now, general surgery is following (2) Sepsis Assessment & Plan: due to the above, continue zosyn , monitor WBC (3) Abdominal pain Assessment & Plan: due to the above continue pain medicine as per surgery (4) Ileus Assessment & Plan: continue nausea meds with hydration, keep NPO Subjective Constitutional: Reports: no symptoms HEENT: Reports: no symptoms Respiratory: Reports: no symptoms Cardiovascular: Reports: no symptoms Gastrointestinal/Abdominal: Reports: nausea, vomiting Genitourinary: Reports: no symptoms Neurologic: Reports: no symptoms Psychiatric: Reports: no symptoms Allergies: Coded Allergies: No Known Allergies (Unverified , 02/22/17) Objective Vital Signs Last 24 Hour Vital Signs Date Time Temp Pulse Resp B/P Pulse Ox O2 Delivery O2 Flow Rate FiO2 02/24/17 12:00 98.2 101 19 126/74 93 Room Air 02/24/17 07:58 98.4 91 20 133/69 95 Room Air 02/24/17 04:00 99.3 87 16 122/73 96 Room Air 02/24/17 00:00 98.8 90 16 126/65 99 Room Air 02/23/17 22:53 100.0 02/23/17 20:45 100.9 94 16 128/63 98 Room Air 02/23/17 17:33 80 20 97 02/23/17 16:04 97.5 84 19 118/64 95 Nasal Cannula Height (Feet): 5 Height (Inches): 10.00 Weight (Pounds): 190 General Appearance: WD/WN, no acute distress HEENT: normocephalic, atraumatic, anicteric, mucous membranes moist Respiratory/Chest: chest wall non-tender, lungs clear, normal breath sounds, no respiratory distress, no accessory muscle use Cardiovascular: normal peripheral pulses, normal rate, regular rhythm, no gallop/murmur, no JVD Abdomen: soft, non tender, no organomegaly, no mass, no scars, absent bowel sounds, distended Extremities: no cyanosis, no clubbing Skin: no rash, no lesions, no ulcers Laboratory Tests Test 02/24/17 07:45 White Blood Count 12.3 K/UL (4.8-10.8) H Red Blood Count 4.85 M/UL (4.70-6.10) Hemoglobin 15.1 G/DL (14.2-18.0) Hematocrit 43.8 % (42.0-52.0) Mean Corpuscular Volume 90 FL (80-99) Mean Corpuscular Hemoglobin 31.2 PG (27.0-31.0) H Mean Corpuscular Hemoglobin Concent 34.5 G/DL (32.0-36.0) Red Cell Distribution Width 12.5 % (11.6-14.8) Platelet Count 154 K/UL (150-450) Mean Platelet Volume 10.3 FL (6.5-10.1) H Neutrophils (%) (Auto) 70.7 % (45.0-75.0) Lymphocytes (%) (Auto) 16.3 % (20.0-45.0) L Monocytes (%) (Auto) 10.8 % (1.0-10.0) H Eosinophils (%) (Auto) 0.6 % (0.0-3.0) Basophils (%) (Auto) 1.7 % (0.0-2.0) Sodium Level 132 mEQ/L (135-145) L Potassium Level 3.8 mEQ/L (3.4-4.9) Chloride Level 91 mEQ/L (98-107) L Carbon Dioxide Level 27 mEQ/L (20-30) Anion Gap 14 (5-15) Blood Urea Nitrogen 13 mg/dL (7-23) Creatinine 1.3 mg/dL (0.7-1.2) H Estimat Glomerular Filtration Rate > 60 mL/min (>60) Glucose Level 119 mg/dL (74-106) H Calcium Level 9.3 mg/dL (8.6-10.2) Current Medications Medications (Trade) Dose Ordered Sig/Samra Route PRN Reason Start Time Stop Time Status Last Admin Dose Admin Acetaminophen (Tylenol) 650 mg Q4H PRN ORAL Mild Pain/Temp > 100.5 02/23/17 21:15 03/25/17 21:14 02/23/17 21:41 Hydromorphone HCl (Dilaudid) 0.5 mg Q3H PRN IVP Pain Score 1-3 02/22/17 21:45 03/01/17 21:44 02/23/17 08:24 Hydromorphone HCl (Dilaudid) 1 mg Q3H PRN IVP pain score 4-6 02/22/17 21:45 03/01/17 21:44 02/23/17 12:20 Metoclopramide HCl 10 mg 10 mg Q6H PRN IVP Nausea & Vomiting 02/22/17 21:45 03/24/17 21:44 02/23/17 08:24 Ondansetron HCl (Zofran) 4 mg Q6H PRN IVP Nausea & Vomiting 02/22/17 21:45 03/24/17 21:44 Pantoprazole (Protonix) 40 mg DAILY IVP 02/23/17 09:00 03/25/17 08:59 02/24/17 08:57 Piperacillin Sod/ Tazobactam Sod/ Dextrose (Zosyn/D5W) 110 ml @ 27.5 mls/hr Q8H IVPB 02/23/17 03:00 03/02/17 02:59 02/24/17 10:04 Senna/Docusate Sodium ([place]-Colace) 1 ea TWICE A DAY ORAL 02/23/17 09:00 03/25/17 08:59 02/23/17 18:12 Keisha Myers M.D. February 24, 2017 15:04
[2017-02-24 16:34] VITALS: BP 131/81
[2017-02-24 20:00] VITALS: BP 134/77
[2017-02-24] MEDS: Metoclopramide 10mg/2ml Inj IVP PRN (20:04)
[2017-02-24] MEDS ORDERED: Metoclopramide 10mg/2ml Inj IVP PRN (23:00)
[2017-02-25] VITALS: BP 142/86
[2017-02-25 04:00] VITALS: BP 140/80
[2017-02-25] MEDS: Piperacillin/Tazobactam 3.375 GM in D5W 110 ML IVPB SCH ×3 (05:49→22:29)
[2017-02-25 08:15] LABS: BASOPHILS % (AUTO) 1.2 % (0.0-2.0); EOSINOPHILS % (AUTO) 0.4 % (0.0-3.0); LYMPHOCYTES % (AUTO) 12.5 % (20.0-45.0); MEAN CORPUSCULAR HEMOGLOBIN 28.5 PG (27.0-31.0); MEAN CORPUSCULAR HGB CONC 32.5 G/DL (32.0-36.0); MEAN CORPUSCULAR VOLUME 88 FL (80-99); MEAN PLATELET VOLUME 10.4 FL (6.5-10.1); MONOCYTES % (AUTO) 9.2 % (1.0-10.0); NEUTROPHILS % (AUTO) 76.7 % (45.0-75.0); PLATELET COUNT 221 K/UL (150-450); RED BLOOD COUNT 5.33 M/UL (4.70-6.10); RED CELL DISTRIBUTION WIDTH 12.3 % (11.6-14.8); WHITE BLOOD COUNT 15.1 K/UL (4.8-10.8)
[2017-02-25 08:23] LABS: ANION GAP 16 (5-15); CALCIUM 9.4 mg/dL (8.6-10.2); CARBON DIOXIDE 28 mEQ/L (20-30); CHLORIDE 93 mEQ/L (98-107); CREATININE 1.3 mg/dL (0.7-1.2); CRP QUANT 27.3 mg/dL (< 0.5); GLOMERULAR FILTRATION RATE > 60 mL/min (>60); HEMOLYSIS 6; POTASSIUM 3.9 mEQ/L (3.4-4.9); SODIUM 137 mEQ/L (135-145)
[2017-02-25] MEDS: Pericolace tab ORAL SCH ×2 (08:53→17:32)
[2017-02-25] MEDS: Pantoprazole Inj IVP SCH (08:54)
[2017-02-25 09:00] VITALS: BP 135/79
[2017-02-25 12:00] VITALS: BP 125/77
--- NOTE | 2017-02-25 14:56 | Infectious Diseases Prog Note ---
Assessment/Plan Problems: (1) Appendicitis, acute Assessment & Plan: S/P surgical resection with no evidence of perforation, continue zosyn empiric coverage for now, advance diet as tolerated , general surgery is following (2) Sepsis Assessment & Plan: due to the above, continue zosyn , monitor WBC (3) Abdominal pain Assessment & Plan: due to the above continue pain medicine as per surgery (4) Ileus Assessment & Plan: continue nausea meds with hydration, advance diet as tolerated Subjective Constitutional: Reports: no symptoms HEENT: Reports: no symptoms Respiratory: Reports: no symptoms Cardiovascular: Reports: no symptoms Gastrointestinal/Abdominal: Reports: bloating, nausea, vomiting Genitourinary: Reports: no symptoms Neurologic: Reports: no symptoms Psychiatric: Reports: no symptoms Skin: Reports: no symptoms Allergies: Coded Allergies: No Known Allergies (Unverified , 02/22/17) Subjective he had three bowels movements, was nauseated and vomited x1 this morning Objective Vital Signs Last 24 Hour Vital Signs Date Time Temp Pulse Resp B/P Pulse Ox O2 Delivery O2 Flow Rate FiO2 02/25/17 12:00 98.2 96 20 125/77 100 Room Air 02/25/17 09:00 96.8 91 20 135/79 94 Room Air 02/25/17 04:00 98.2 92 16 140/80 9 Room Air 02/25/17 00:00 99.0 101 18 142/86 98 Room Air 02/24/17 20:00 98.4 102 18 134/77 98 Room Air 02/24/17 18:57 97.7 02/24/17 18:57 97.7 02/24/17 16:34 100.4 95 19 131/81 97 Room Air Height (Feet): 5 Height (Inches): 10.00 Weight (Pounds): 190 General Appearance: WD/WN, no acute distress HEENT: normocephalic, atraumatic, anicteric, mucous membranes moist Respiratory/Chest: chest wall non-tender, lungs clear, normal breath sounds, no respiratory distress, no accessory muscle use Cardiovascular: normal peripheral pulses, normal rate, regular rhythm, no gallop/murmur, no JVD Abdomen: normal bowel sounds, no organomegaly, non distended, no mass, no scars , absent bowel sounds, tender Extremities: no cyanosis, no clubbing Skin: no rash, no lesions, no ulcers Laboratory Tests Test 02/25/17 07:22 White Blood Count 15.1 K/UL (4.8-10.8) H Red Blood Count 5.33 M/UL (4.70-6.10) Hemoglobin 15.2 G/DL (14.2-18.0) Hematocrit 46.6 % (42.0-52.0) Mean Corpuscular Volume 88 FL (80-99) Mean Corpuscular Hemoglobin 28.5 PG (27.0-31.0) Mean Corpuscular Hemoglobin Concent 32.5 G/DL (32.0-36.0) Red Cell Distribution Width 12.3 % (11.6-14.8) Platelet Count 221 K/UL (150-450) Mean Platelet Volume 10.4 FL (6.5-10.1) H Neutrophils (%) (Auto) 76.7 % (45.0-75.0) H Lymphocytes (%) (Auto) 12.5 % (20.0-45.0) L Monocytes (%) (Auto) 9.2 % (1.0-10.0) Eosinophils (%) (Auto) 0.4 % (0.0-3.0) Basophils (%) (Auto) 1.2 % (0.0-2.0) Sodium Level 137 mEQ/L (135-145) Potassium Level 3.9 mEQ/L (3.4-4.9) Chloride Level 93 mEQ/L (98-107) L Carbon Dioxide Level 28 mEQ/L (20-30) Anion Gap 16 (5-15) H Blood Urea Nitrogen 20 mg/dL (7-23) Creatinine 1.3 mg/dL (0.7-1.2) H Estimat Glomerular Filtration Rate > 60 mL/min (>60) Glucose Level 131 mg/dL (74-106) H Calcium Level 9.4 mg/dL (8.6-10.2) C-Reactive Protein, Quantitative 27.3 mg/dL (< 0.5) H Current Medications Medications (Trade) Dose Ordered Sig/Samra Route PRN Reason Start Time Stop Time Status Last Admin Dose Admin Acetaminophen (Tylenol) 650 mg Q4H PRN ORAL Mild Pain/Temp > 100.5 02/23/17 21:15 03/25/17 21:14 02/24/17 18:02 Hydromorphone HCl (Dilaudid) 0.5 mg Q3H PRN IVP Pain Score 1-3 02/22/17 21:45 03/01/17 21:44 02/23/17 08:24 Hydromorphone HCl (Dilaudid) 1 mg Q3H PRN IVP pain score 4-6 02/22/17 21:45 03/01/17 21:44 02/23/17 12:20 Metoclopramide HCl (Reglan) 10 mg Q4HR PRN IVP Nausea & Vomiting 02/24/17 23:00 03/26/17 22:59 Ondansetron HCl 4 mg 4 mg Q4HR PRN IVP Nausea & Vomiting 02/24/17 23:00 03/26/17 22:59 02/25/17 01:42 Pantoprazole (Protonix) 40 mg DAILY IVP 02/23/17 09:00 03/25/17 08:59 02/25/17 08:54 Piperacillin Sod/ Tazobactam Sod/ Dextrose (Zosyn/D5W) 110 ml @ 27.5 mls/hr Q8HR IVPB 02/25/17 14:00 03/02/17 13:59 02/25/17 14:12 Senna/Docusate Sodium ([place]-Colace) 1 ea TWICE A DAY ORAL 02/23/17 09:00 03/25/17 08:59 02/23/17 18:12 Keisha Myers M.D. February 25, 2017 14:56
[2017-02-25 16:00] VITALS: BP 117/88
[2017-02-25] MEDS ORDERED: NS 550ML IV ONE (16:13)
--- NOTE | 2017-02-25 16:27 | General Progress Note ---
Assessment/Plan Problem List: (1) Abdominal pain ICD Codes: R10.9 - Unspecified abdominal pain SNOMED: 30498839 Qualifiers: Qualified Codes: R10.31 - Right lower quadrant pain (2) Appendicitis, acute ICD Codes: K35.80 - Unspecified acute appendicitis SNOMED: 52535442 Qualifiers: Qualified Codes: K35.80 - Unspecified acute appendicitis Status: progressing Assessment/Plan s/p appendectomy will dc when cleared by surgeon abx per id afebrile Subjective Gastrointestinal/Abdominal: Reports: abdominal pain Allergies: Coded Allergies: No Known Allergies (Unverified , 02/22/17) Objective Last 24 Hour Vital Signs Date Time Temp Pulse Resp B/P Pulse Ox O2 Delivery O2 Flow Rate FiO2 02/25/17 16:00 98.1 92 20 117/88 98 Room Air 02/25/17 12:00 98.2 96 20 125/77 100 Room Air 02/25/17 09:00 96.8 91 20 135/79 94 Room Air 02/25/17 04:00 98.2 92 16 140/80 9 Room Air 02/25/17 00:00 99.0 101 18 142/86 98 Room Air 02/24/17 20:00 98.4 102 18 134/77 98 Room Air 02/24/17 18:57 97.7 02/24/17 18:57 97.7 02/24/17 16:34 100.4 95 19 131/81 97 Room Air Intake and Output 02/24/17 02/25/17 19:00 07:00 Intake Total 360.0 ml Output Total 550 ml 500 ml Balance -190.0 ml -500 ml Intake Oral 250 ml IV Total 110.0 ml Output Urine Total 125 ml Emesis 425 ml 500 ml # Voids 3 # Bowel Movements 1 Laboratory Tests 02/25/17 07:22: White Blood Count 15.1H, Red Blood Count 5.33, Hemoglobin 15.2, Hematocrit 46.6 , Mean Corpuscular Volume 88, Mean Corpuscular Hemoglobin 28.5, Mean Corpuscular Hemoglobin Concent 32.5, Red Cell Distribution Width 12.3, Platelet Count 221, Mean Platelet Volume 10.4H, Neutrophils (%) (Auto) 76.7H, Lymphocytes (%) (Auto) 12.5L, Monocytes (%) (Auto) 9.2, Eosinophils (%) (Auto) 0.4, Basophils (%) (Auto) 1.2, Sodium Level 137, Potassium Level 3.9, Chloride Level 93L, Carbon Dioxide Level 28, Anion Gap 16H, Blood Urea Nitrogen 20, Creatinine 1.3H, Estimat Glomerular Filtration Rate > 60, Glucose Level 131H, Calcium Level 9.4, C-Reactive Protein, Quantitative 27.3H Height (Feet): 5 Height (Inches): 10.00 Weight (Pounds): 190 Abdomen: tender Kay Martinez MD February 25, 2017 16:27
--- NOTE | 2017-02-25 17:08 | General Surgery Progress Note ---
General Surgery-Progress Note Subjective Procedure Performed lap appy Symptoms: other - He has hiccup and vomitting he had 4-5 episode of watery diarrhea no mucus or blood Objective Last 24 Hour Vital Signs Date Time Temp Pulse Resp B/P Pulse Ox O2 Delivery O2 Flow Rate FiO2 02/25/17 16:00 98.1 92 20 117/88 98 Room Air 02/25/17 12:00 98.2 96 20 125/77 100 Room Air 02/25/17 09:00 96.8 91 20 135/79 94 Room Air 02/25/17 04:00 98.2 92 16 140/80 9 Room Air 02/25/17 00:00 99.0 101 18 142/86 98 Room Air 02/24/17 20:00 98.4 102 18 134/77 98 Room Air 02/24/17 18:57 97.7 02/24/17 18:57 97.7 I&O Intake and Output 02/24/17 02/25/17 19:00 07:00 Intake Total 360.0 ml Output Total 550 ml 500 ml Balance -190.0 ml -500 ml Intake Oral 250 ml IV Total 110.0 ml Output Urine Total 125 ml Emesis 425 ml 500 ml # Voids 3 # Bowel Movements 1 Dressing: dry Respiratory: clear Abdomen: soft, non-tender, present bowel sounds Extremities: no edema, no tenderness Laboratory Tests Test 02/25/17 07:22 White Blood Count 15.1 K/UL (4.8-10.8) H Red Blood Count 5.33 M/UL (4.70-6.10) Hemoglobin 15.2 G/DL (14.2-18.0) Hematocrit 46.6 % (42.0-52.0) Mean Corpuscular Volume 88 FL (80-99) Mean Corpuscular Hemoglobin 28.5 PG (27.0-31.0) Mean Corpuscular Hemoglobin Concent 32.5 G/DL (32.0-36.0) Red Cell Distribution Width 12.3 % (11.6-14.8) Platelet Count 221 K/UL (150-450) Mean Platelet Volume 10.4 FL (6.5-10.1) H Neutrophils (%) (Auto) 76.7 % (45.0-75.0) H Lymphocytes (%) (Auto) 12.5 % (20.0-45.0) L Monocytes (%) (Auto) 9.2 % (1.0-10.0) Eosinophils (%) (Auto) 0.4 % (0.0-3.0) Basophils (%) (Auto) 1.2 % (0.0-2.0) Sodium Level 137 mEQ/L (135-145) Potassium Level 3.9 mEQ/L (3.4-4.9) Chloride Level 93 mEQ/L (98-107) L Carbon Dioxide Level 28 mEQ/L (20-30) Anion Gap 16 (5-15) H Blood Urea Nitrogen 20 mg/dL (7-23) Creatinine 1.3 mg/dL (0.7-1.2) H Estimat Glomerular Filtration Rate > 60 mL/min (>60) Glucose Level 131 mg/dL (74-106) H Calcium Level 9.4 mg/dL (8.6-10.2) C-Reactive Protein, Quantitative 27.3 mg/dL (< 0.5) H Assessment Additional Comments s/p Lap Appy R/O colitis Plan Additional Comments c dif evaluation CANDIE DRIVER February 25, 2017 17:08
--- NOTE | 2017-02-25 18:26 | General Progress Note ---
Assessment/Plan Assessment/Plan Assessment - acute appendicitis - s/p lap appy - POD 3 s/p appy - post op gut dysmotility - diarrhea - leukocytosis concerning Recommendations - NPO or just sips of clears - IVF - add flagyl - check C Diff - if not improved, will need repeat CT - anti emetics - PPI - surgical f/u Subjective Allergies: Coded Allergies: No Known Allergies (Unverified , 02/22/17) Subjective seen early am still with vomiting had some diarrhea later in the day says abd less distended Objective Last 24 Hour Vital Signs Date Time Temp Pulse Resp B/P Pulse Ox O2 Delivery O2 Flow Rate FiO2 02/25/17 16:00 98.1 92 20 117/88 98 Room Air 02/25/17 12:00 98.2 96 20 125/77 100 Room Air 02/25/17 09:00 96.8 91 20 135/79 94 Room Air 02/25/17 04:00 98.2 92 16 140/80 9 Room Air 02/25/17 00:00 99.0 101 18 142/86 98 Room Air 02/24/17 20:00 98.4 102 18 134/77 98 Room Air 02/24/17 18:57 97.7 02/24/17 18:57 97.7 Intake and Output 02/24/17 02/25/17 19:00 07:00 Intake Total 360.0 ml Output Total 550 ml 500 ml Balance -190.0 ml -500 ml Intake Oral 250 ml IV Total 110.0 ml Output Urine Total 125 ml Emesis 425 ml 500 ml # Voids 3 # Bowel Movements 1 Laboratory Tests 02/25/17 07:22: White Blood Count 15.1H, Red Blood Count 5.33, Hemoglobin 15.2, Hematocrit 46.6 , Mean Corpuscular Volume 88, Mean Corpuscular Hemoglobin 28.5, Mean Corpuscular Hemoglobin Concent 32.5, Red Cell Distribution Width 12.3, Platelet Count 221, Mean Platelet Volume 10.4H, Neutrophils (%) (Auto) 76.7H, Lymphocytes (%) (Auto) 12.5L, Monocytes (%) (Auto) 9.2, Eosinophils (%) (Auto) 0.4, Basophils (%) (Auto) 1.2, Sodium Level 137, Potassium Level 3.9, Chloride Level 93L, Carbon Dioxide Level 28, Anion Gap 16H, Blood Urea Nitrogen 20, Creatinine 1.3H, Estimat Glomerular Filtration Rate > 60, Glucose Level 131H, Calcium Level 9.4, C-Reactive Protein, Quantitative 27.3H Height (Feet): 5 Height (Inches): 10.00 Weight (Pounds): 190 Objective WDWN AA man NCAT supple CTA RRR abd less distended, tympanitic, wound OK no edema RALPH GRAY February 25, 2017 18:26
[2017-02-25 20:00] VITALS: BP 112/78
[2017-02-25] MEDS: metroNIDAZOLE 500mg 100 ML IVPB SCH (22:23)
[2017-02-25] MEDS ORDERED: D5 1/2NS 1,000 ML IV SCH (23:00)
[2017-02-26] VITALS: BP 123/71
[2017-02-26] MEDS: D5 1/2NS 1,000 ML IV SCH ×5 (01:00→21:59)
[2017-02-26 04:25] VITALS: BP 125/84
[2017-02-26] MEDS: metroNIDAZOLE 500mg 100 ML IVPB SCH ×3 (05:00→21:00)
[2017-02-26] MEDS: Piperacillin/Tazobactam 3.375 GM in D5W 110 ML IVPB SCH ×3 (05:55→21:59)
[2017-02-26 06:28] LABS: BASOPHILS % (AUTO) 1.4 % (0.0-2.0); EOSINOPHILS % (AUTO) 0.9 % (0.0-3.0); LYMPHOCYTES % (AUTO) 13.9 % (20.0-45.0); MEAN CORPUSCULAR HEMOGLOBIN 28.5 PG (27.0-31.0); MEAN CORPUSCULAR HGB CONC 32.4 G/DL (32.0-36.0); MEAN CORPUSCULAR VOLUME 88 FL (80-99); MEAN PLATELET VOLUME 8.6 FL (6.5-10.1); MONOCYTES % (AUTO) 8.6 % (1.0-10.0); NEUTROPHILS % (AUTO) 75.2 % (45.0-75.0); PLATELET COUNT 263 K/UL (150-450); RED BLOOD COUNT 5.18 M/UL (4.70-6.10); RED CELL DISTRIBUTION WIDTH 12.4 % (11.6-14.8); WHITE BLOOD COUNT 13.8 K/UL (4.8-10.8)
[2017-02-26 07:33] LABS: ALANINE AMINOTRANSFERASE 12 U/L (3-41); ALBUMIN/GLOBULIN RATIO 0.8 (1.0-2.7); ANION GAP 11 (5-15); ASPARTATE AMINO TRANSFERASE 16 U/L (5-40); CALCIUM 9.8 mg/dL (8.6-10.2); CARBON DIOXIDE 32 mEQ/L (20-30); CHLORIDE 95 mEQ/L (98-107); CREATININE 1.3 mg/dL (0.7-1.2); CRP QUANT 18.1 mg/dL (< 0.5); GLOMERULAR FILTRATION RATE > 60 mL/min (>60); HEMOLYSIS 6; POTASSIUM 3.9 mEQ/L (3.4-4.9); SODIUM 138 mEQ/L (135-145); TOTAL PROTEIN 8.1 g/dL (6.6-8.7)
[2017-02-26 08:00] VITALS: BP 134/79
[2017-02-26] MEDS: Pantoprazole Inj IVP SCH (08:18)
--- NOTE | 2017-02-26 08:53 | General Progress Note ---
Assessment/Plan Problem List: (1) Abdominal pain ICD Codes: R10.9 - Unspecified abdominal pain SNOMED: [id number] Qualifiers: Qualified Codes: R10.31 - Right lower quadrant pain (2) Appendicitis, acute ICD Codes: K35.80 - Unspecified acute appendicitis SNOMED: [id number] Qualifiers: Qualified Codes: K35.80 - Unspecified acute appendicitis Status: progressing Assessment/Plan s/p appendectomy still has pain at surgical site abx per id afebrile Subjective ROS Limited/Unobtainable: Yes Constitutional: Reports: no symptoms Allergies: Coded Allergies: No Known Allergies (Unverified , 02/22/17) Objective Last 24 Hour Vital Signs Date Time Temp Pulse Resp B/P Pulse Ox O2 Delivery O2 Flow Rate FiO2 02/26/17 04:25 98.1 99 21 125/84 89 Room Air 02/26/17 00:00 96.5 99 20 123/71 96 Room Air 02/25/17 20:00 98.1 99 20 112/78 96 Room Air 02/25/17 16:00 98.1 92 20 117/88 98 Room Air 02/25/17 12:00 98.2 96 20 125/77 100 Room Air 02/25/17 09:00 96.8 91 20 135/79 94 Room Air Intake and Output 02/25/17 02/26/17 19:00 07:00 Intake Total 1060.0 ml Balance 1060.0 ml IV Total 1060.0 ml # Voids 1 Laboratory Tests 02/26/17 05:05: White Blood Count 13.8H, Red Blood Count 5.18, Hemoglobin 14.8, Hematocrit 45.6 , Mean Corpuscular Volume 88, Mean Corpuscular Hemoglobin 28.5, Mean Corpuscular Hemoglobin Concent 32.4, Red Cell Distribution Width 12.4, Platelet Count 263, Mean Platelet Volume 8.6, Neutrophils (%) (Auto) 75.2H, Lymphocytes ( %) (Auto) 13.9L, Monocytes (%) (Auto) 8.6, Eosinophils (%) (Auto) 0.9, Basophils (%) (Auto) 1.4, Sodium Level 138, Potassium Level 3.9, Chloride Level 95L, Carbon Dioxide Level 32H, Anion Gap 11, Blood Urea Nitrogen 23, Creatinine 1.3H, Estimat Glomerular Filtration Rate > 60, Glucose Level 148H, Calcium Level 9.8, Total Bilirubin 0.6, Aspartate Amino Transf (AST/SGOT) 16, Alanine Aminotransferase (ALT/SGPT) 12, Alkaline Phosphatase 51, C-Reactive Protein, Quantitative 18.1H, Total Protein 8.1, Albumin 3.8, Globulin 4.3, Albumin/ Globulin Ratio 0.8L Height (Feet): 5 Height (Inches): 10.00 Weight (Pounds): 190 EENT: PERRL/EOMI Neck: supple Cardiovascular: normal rate Respiratory/Chest: lungs clear Abdomen: soft Kay Martinez MD February 26, 2017 08:53
[2017-02-26 12:00] VITALS: BP 118/76
--- NOTE | 2017-02-26 14:13 | General Surgery Progress Note ---
General Surgery-Progress Note Subjective Procedure Performed lap appy Symptoms: other - watery diarrhea Objective Last 24 Hour Vital Signs Date Time Temp Pulse Resp B/P Pulse Ox O2 Delivery O2 Flow Rate FiO2 02/26/17 12:00 97.5 81 18 118/76 98 Room Air 02/26/17 08:00 97.7 90 20 134/79 100 Room Air 02/26/17 04:25 98.1 99 21 125/84 89 Room Air 02/26/17 00:00 96.5 99 20 123/71 96 Room Air 02/25/17 20:00 98.1 99 20 112/78 96 Room Air 02/25/17 16:00 98.1 92 20 117/88 98 Room Air I&O Intake and Output 02/25/17 02/26/17 19:00 07:00 Intake Total 1210.0 ml Balance 1210.0 ml IV Total 1210.0 ml # Voids 1 Dressing: dry Drains: none Respiratory: clear Abdomen: soft, flat, non-tender, present bowel sounds Extremities: no edema, no tenderness Laboratory Tests Test 02/26/17 05:05 White Blood Count 13.8 K/UL (4.8-10.8) H Red Blood Count 5.18 M/UL (4.70-6.10) Hemoglobin 14.8 G/DL (14.2-18.0) Hematocrit 45.6 % (42.0-52.0) Mean Corpuscular Volume 88 FL (80-99) Mean Corpuscular Hemoglobin 28.5 PG (27.0-31.0) Mean Corpuscular Hemoglobin Concent 32.4 G/DL (32.0-36.0) Red Cell Distribution Width 12.4 % (11.6-14.8) Platelet Count 263 K/UL (150-450) Mean Platelet Volume 8.6 FL (6.5-10.1) Neutrophils (%) (Auto) 75.2 % (45.0-75.0) H Lymphocytes (%) (Auto) 13.9 % (20.0-45.0) L Monocytes (%) (Auto) 8.6 % (1.0-10.0) Eosinophils (%) (Auto) 0.9 % (0.0-3.0) Basophils (%) (Auto) 1.4 % (0.0-2.0) Sodium Level 138 mEQ/L (135-145) Potassium Level 3.9 mEQ/L (3.4-4.9) Chloride Level 95 mEQ/L (98-107) L Carbon Dioxide Level 32 mEQ/L (20-30) H Anion Gap 11 (5-15) Blood Urea Nitrogen 23 mg/dL (7-23) Creatinine 1.3 mg/dL (0.7-1.2) H Estimat Glomerular Filtration Rate > 60 mL/min (>60) Glucose Level 148 mg/dL (74-106) H Calcium Level 9.8 mg/dL (8.6-10.2) Total Bilirubin 0.6 mg/dL (0.0-1.2) Aspartate Amino Transf (AST/SGOT) 16 U/L (5-40) Alanine Aminotransferase (ALT/SGPT) 12 U/L (3-41) Alkaline Phosphatase 51 U/L (40-129) C-Reactive Protein, Quantitative 18.1 mg/dL (< 0.5) H Total Protein 8.1 g/dL (6.6-8.7) Albumin 3.8 g/dL (3.5-5.2) Globulin 4.3 g/dL Albumin/Globulin Ratio 0.8 (1.0-2.7) L Assessment Additional Comments S/P lap appy Plan Additional Comments per CANDIE Sherman February 26, 2017 14:13
--- NOTE | 2017-02-26 14:34 | Infectious Diseases Prog Note ---
Assessment/Plan Problems: (1) Appendicitis, acute Assessment & Plan: S/P surgical resection with POST OP illeus, repeated CT abdomen showed illeus only , with no evidence of perforation or leak, will continue zosyn empiric coverage for now, advance diet as tolerated , general surgery is following (2) Sepsis Assessment & Plan: due to the above, continue zosyn , monitor WBC (3) Abdominal pain Assessment & Plan: improved, continue pain medicine as per surgery (4) Ileus Assessment & Plan: continue nausea meds with hydration, advance diet as tolerated Subjective Constitutional: Reports: no symptoms HEENT: Reports: no symptoms Respiratory: Reports: no symptoms Cardiovascular: Reports: no symptoms Gastrointestinal/Abdominal: Reports: bloating Genitourinary: Reports: no symptoms Neurologic: Reports: no symptoms Psychiatric: Reports: no symptoms Skin: Reports: no symptoms Allergies: Coded Allergies: No Known Allergies (Unverified , 02/22/17) Subjective he passed glenny, and had bowel movements, no nausea or vomiting, still NPO Objective Vital Signs Last 24 Hour Vital Signs Date Time Temp Pulse Resp B/P Pulse Ox O2 Delivery O2 Flow Rate FiO2 02/26/17 12:00 97.5 81 18 118/76 98 Room Air 02/26/17 08:00 97.7 90 20 134/79 100 Room Air 02/26/17 04:25 98.1 99 21 125/84 89 Room Air 02/26/17 00:00 96.5 99 20 123/71 96 Room Air 02/25/17 20:00 98.1 99 20 112/78 96 Room Air 02/25/17 16:00 98.1 92 20 117/88 98 Room Air Height (Feet): 5 Height (Inches): 10.00 Weight (Pounds): 190 General Appearance: WD/WN, no acute distress HEENT: normocephalic, atraumatic, anicteric Respiratory/Chest: chest wall non-tender, lungs clear, normal breath sounds Cardiovascular: normal peripheral pulses, normal rate, regular rhythm, no gallop/murmur Abdomen: soft, non tender, no organomegaly, no mass, no scars, hypoactive bowel sounds, distended Extremities: no cyanosis, no clubbing Skin: no rash, no lesions Laboratory Tests Test 02/26/17 05:05 White Blood Count 13.8 K/UL (4.8-10.8) H Red Blood Count 5.18 M/UL (4.70-6.10) Hemoglobin 14.8 G/DL (14.2-18.0) Hematocrit 45.6 % (42.0-52.0) Mean Corpuscular Volume 88 FL (80-99) Mean Corpuscular Hemoglobin 28.5 PG (27.0-31.0) Mean Corpuscular Hemoglobin Concent 32.4 G/DL (32.0-36.0) Red Cell Distribution Width 12.4 % (11.6-14.8) Platelet Count 263 K/UL (150-450) Mean Platelet Volume 8.6 FL (6.5-10.1) Neutrophils (%) (Auto) 75.2 % (45.0-75.0) H Lymphocytes (%) (Auto) 13.9 % (20.0-45.0) L Monocytes (%) (Auto) 8.6 % (1.0-10.0) Eosinophils (%) (Auto) 0.9 % (0.0-3.0) Basophils (%) (Auto) 1.4 % (0.0-2.0) Sodium Level 138 mEQ/L (135-145) Potassium Level 3.9 mEQ/L (3.4-4.9) Chloride Level 95 mEQ/L (98-107) L Carbon Dioxide Level 32 mEQ/L (20-30) H Anion Gap 11 (5-15) Blood Urea Nitrogen 23 mg/dL (7-23) Creatinine 1.3 mg/dL (0.7-1.2) H Estimat Glomerular Filtration Rate > 60 mL/min (>60) Glucose Level 148 mg/dL (74-106) H Calcium Level 9.8 mg/dL (8.6-10.2) Total Bilirubin 0.6 mg/dL (0.0-1.2) Aspartate Amino Transf (AST/SGOT) 16 U/L (5-40) Alanine Aminotransferase (ALT/SGPT) 12 U/L (3-41) Alkaline Phosphatase 51 U/L (40-129) C-Reactive Protein, Quantitative 18.1 mg/dL (< 0.5) H Total Protein 8.1 g/dL (6.6-8.7) Albumin 3.8 g/dL (3.5-5.2) Globulin 4.3 g/dL Albumin/Globulin Ratio 0.8 (1.0-2.7) L Current Medications Medications (Trade) Dose Ordered Sig/Samra Route PRN Reason Start Time Stop Time Status Last Admin Dose Admin Acetaminophen (Tylenol) 650 mg Q4H PRN ORAL Mild Pain/Temp > 100.5 02/23/17 21:15 03/25/17 21:14 02/24/17 18:02 Dextrose/Sodium Chloride (D5 0.45% NS) 1,000 ml @ 150 mls/hr Q6H40M IV 02/26/17 00:00 03/28/17 00:00 02/26/17 12:00 Hydromorphone HCl (Dilaudid) 0.5 mg Q3H PRN IVP Pain Score 1-3 02/22/17 21:45 03/01/17 21:44 02/23/17 08:24 Hydromorphone HCl (Dilaudid) 1 mg Q3H PRN IVP pain score 4-6 02/22/17 21:45 03/01/17 21:44 02/23/17 12:20 Metoclopramide HCl (Reglan) 10 mg Q4HR PRN IVP Nausea & Vomiting 02/24/17 23:00 03/26/17 22:59 Metronidazole 100 ml @ 100 mls/hr Q8HR@0500,1300,2100 IVPB 02/25/17 21:00 03/04/17 20:59 02/26/17 11:59 Ondansetron HCl 4 mg 4 mg Q4HR PRN IVP Nausea & Vomiting 02/24/17 23:00 03/26/17 22:59 02/25/17 01:42 Pantoprazole (Protonix) 40 mg DAILY IVP 02/23/17 09:00 03/25/17 08:59 02/26/17 08:18 Piperacillin Sod/ Tazobactam Sod 3.375 gm/Dextrose 110 ml @ 27.5 mls/hr Q8HR IVPB 02/25/17 14:00 03/02/17 13:59 02/26/17 13:38 Keisha Myers M.D. February 26, 2017 14:34
[2017-02-26 16:00] VITALS: BP 113/67
--- NOTE | 2017-02-26 17:26 | General Progress Note ---
Assessment/Plan Assessment/Plan Assessment - acute appendicitis - s/p lap appy - POD 4 s/p appy - post op gut dysmotility vs other cause for vomiting - persistent leukocytosis, ? etiology - diarrhea - ? etiology Recommendations - NPO - IVF - check C Diff - f/u CT results done this am - anti emetics - PPI - surgical and ID f/u Subjective Allergies: Coded Allergies: No Known Allergies (Unverified , 02/22/17) Subjective seen in am still with vomiting had some diarrhea later C Diff pending (but already on flagyl) says abd less distended Objective Last 24 Hour Vital Signs Date Time Temp Pulse Resp B/P Pulse Ox O2 Delivery O2 Flow Rate FiO2 02/26/17 12:00 97.5 81 18 118/76 98 Room Air 02/26/17 08:00 97.7 90 20 134/79 100 Room Air 02/26/17 04:25 98.1 99 21 125/84 89 Room Air 02/26/17 00:00 96.5 99 20 123/71 96 Room Air 02/25/17 20:00 98.1 99 20 112/78 96 Room Air Intake and Output 02/25/17 02/26/17 19:00 07:00 Intake Total 1210.0 ml Balance 1210.0 ml IV Total 1210.0 ml # Voids 1 Laboratory Tests 02/26/17 05:05: White Blood Count 13.8H, Red Blood Count 5.18, Hemoglobin 14.8, Hematocrit 45.6 , Mean Corpuscular Volume 88, Mean Corpuscular Hemoglobin 28.5, Mean Corpuscular Hemoglobin Concent 32.4, Red Cell Distribution Width 12.4, Platelet Count 263, Mean Platelet Volume 8.6, Neutrophils (%) (Auto) 75.2H, Lymphocytes ( %) (Auto) 13.9L, Monocytes (%) (Auto) 8.6, Eosinophils (%) (Auto) 0.9, Basophils (%) (Auto) 1.4, Sodium Level 138, Potassium Level 3.9, Chloride Level 95L, Carbon Dioxide Level 32H, Anion Gap 11, Blood Urea Nitrogen 23, Creatinine 1.3H, Estimat Glomerular Filtration Rate > 60, Glucose Level 148H, Calcium Level 9.8, Total Bilirubin 0.6, Aspartate Amino Transf (AST/SGOT) 16, Alanine Aminotransferase (ALT/SGPT) 12, Alkaline Phosphatase 51, C-Reactive Protein, Quantitative 18.1H, Total Protein 8.1, Albumin 3.8, Globulin 4.3, Albumin/ Globulin Ratio 0.8L Height (Feet): 5 Height (Inches): 10.00 Weight (Pounds): 190 Objective WDWN AA man NCAT supple CTA RRR abd less distended, tympanitic, wound OK no edema RALPH GRAY February 26, 2017 17:26
[2017-02-26 20:00] VITALS: BP 115/69
[2017-02-27] VITALS: BP 152/68
[2017-02-27 04:00] VITALS: BP 117/63
[2017-02-27] MEDS: metroNIDAZOLE 500mg 100 ML IVPB SCH ×3 (04:37→21:27)
[2017-02-27] MEDS: D5 1/2NS 1,000 ML IV SCH ×4 (04:37→21:27)
[2017-02-27] MEDS: Piperacillin/Tazobactam 3.375 GM in D5W 110 ML IVPB SCH ×2 (06:22→14:04)
[2017-02-27 07:46] LABS: BASOPHILS % (AUTO) 1.1 % (0.0-2.0); EOSINOPHILS % (AUTO) 1.8 % (0.0-3.0); LYMPHOCYTES % (AUTO) 18.5 % (20.0-45.0); MEAN CORPUSCULAR HEMOGLOBIN 28.9 PG (27.0-31.0); MEAN CORPUSCULAR HGB CONC 32.5 G/DL (32.0-36.0); MEAN CORPUSCULAR VOLUME 89 FL (80-99); MEAN PLATELET VOLUME 8.3 FL (6.5-10.1); MONOCYTES % (AUTO) 13.4 % (1.0-10.0); NEUTROPHILS % (AUTO) 65.2 % (45.0-75.0); PLATELET COUNT 260 K/UL (150-450); RED BLOOD COUNT 4.64 M/UL (4.70-6.10); RED CELL DISTRIBUTION WIDTH 12.5 % (11.6-14.8); WHITE BLOOD COUNT 10.4 K/UL (4.8-10.8)
[2017-02-27] MEDS: Pantoprazole Inj IVP SCH (07:51)
[2017-02-27 08:00] VITALS: BP 123/80
[2017-02-27 08:24] LABS: ALANINE AMINOTRANSFERASE 10 U/L (3-41); ALBUMIN/GLOBULIN RATIO 0.9 (1.0-2.7); ANION GAP 14 (5-15); ASPARTATE AMINO TRANSFERASE 17 U/L (5-40); CALCIUM 9.1 mg/dL (8.6-10.2); CARBON DIOXIDE 30 mEQ/L (20-30); CHLORIDE 95 mEQ/L (98-107); CRP QUANT 9.1 mg/dL (< 0.5); GLOMERULAR FILTRATION RATE > 60 mL/min (>60); HEMOLYSIS 3; POTASSIUM 3.5 mEQ/L (3.4-4.9); SODIUM 139 mEQ/L (135-145); TOTAL PROTEIN 7.1 g/dL (6.6-8.7)
[2017-02-27] MEDS ORDERED: D5 1/2NS 1,000 ML IV SCH (08:30)
--- NOTE | 2017-02-27 10:53 | Diagnostic Imaging Report ---
Indication: Abdominal pain and vomiting. Status post recent appendectomy Technique: Continuous helical transaxial imaging of the abdomen and pelvis was obtained from the lung bases to the pubic symphysis. No intravenous contrast was administered. Coronal 2-D reformats were also obtained. Total Dose length Product (DLP): [address] Dose Index Volume (CTDIvol): 15 mGy Comparison: Preop CT 02/22/17 Findings: Patient is status post recent abdominal surgery. Surgical clips demonstrated in the right lower quadrant consistent with recent appendectomy. Stranding of the fat in the right lower quadrant and a small amount of fluid anterior to the right psoas muscle and the mild accumulation within the pelvis consistent with postsurgical changes. This is not unexpected given the recent surgery. No compelling evidence for abscess. Trace amount of free air indicative of recent surgery noted. There is mild generalized dilatation of multiple small bowel loops some showing mild degree of wall thickening. The findings are probably on the basis of a postoperative ileus. Please correlate clinically and obtain followup is needed. There is no transition identified to indicate a small bowel obstruction. The lung bases are essentially clear. There is some motion artifact limiting evaluation. Hiatal hernia is present. Solid organs are not well evaluated on this study done without IV contrast material. Impression: Multiple, mildly distended loops of small bowel with wall thickening likely due to postoperative ileus. Please correlate clinically. Status post recent appendectomy with postsurgical changes noted. Hiatal hernia Motion artifacts The CT scanner at [facility] is accredited by the [employer] and the scans are performed using protocols designed to limit radiation exposure to as low as reasonably achievable to attain images of sufficient resolution adequate for diagnostic evaluation.
[2017-02-27 12:00] VITALS: BP 142/78
--- NOTE | 2017-02-27 15:16 | General Progress Note ---
Assessment/Plan Assessment/Plan Assessment - acute appendicitis - s/p lap appy - POD 5 s/p appy - Improved WBC, CRP, Cr, vomiting, diarrhea all encouraging Recommendations - Clears / advance again - abx - surgical and ID f/u Subjective Allergies: Coded Allergies: No Known Allergies (Unverified , 02/22/17) Subjective Better no further vomiting only hiccups spitting out stools more firm Objective Last 24 Hour Vital Signs Date Time Temp Pulse Resp B/P Pulse Ox O2 Delivery O2 Flow Rate FiO2 02/27/17 12:00 98.2 82 20 142/78 99 Room Air 02/27/17 08:00 97.3 82 18 123/80 98 Room Air 02/27/17 04:00 98.6 71 18 117/63 97 Room Air 02/27/17 00:00 97.7 81 18 152/68 98 Room Air 02/26/17 20:00 98.2 84 18 115/69 100 Room Air 02/26/17 16:00 97.7 84 20 113/67 99 Room Air Intake and Output 02/26/17 02/27/17 19:00 07:00 Intake Total 1500 ml Output Total 600 ml Balance 900 ml IV Total 1500 ml Output Urine Total 400 ml Emesis 200 ml # Voids 5 3 Laboratory Tests 02/27/17 06:32: White Blood Count 10.4, Red Blood Count 4.64L, Hemoglobin 13.4L, Hematocrit 41.1L, Mean Corpuscular Volume 89, Mean Corpuscular Hemoglobin 28.9, Mean Corpuscular Hemoglobin Concent 32.5, Red Cell Distribution Width 12.5, Platelet Count 260, Mean Platelet Volume 8.3, Neutrophils (%) (Auto) 65.2, Lymphocytes (% ) (Auto) 18.5L, Monocytes (%) (Auto) 13.4H, Eosinophils (%) (Auto) 1.8, Basophils (%) (Auto) 1.1, Sodium Level 139, Potassium Level 3.5, Chloride Level 95L, Carbon Dioxide Level 30, Anion Gap 14, Blood Urea Nitrogen 18, Creatinine 1.0, Estimat Glomerular Filtration Rate > 60, Glucose Level 118H, Calcium Level 9.1, Total Bilirubin 0.5, Aspartate Amino Transf (AST/SGOT) 17, Alanine Aminotransferase (ALT/SGPT) 10, Alkaline Phosphatase 43, C-Reactive Protein, Quantitative 9.1H, Total Protein 7.1, Albumin 3.5, Globulin 3.6, Albumin/ Globulin Ratio 0.9L Height (Feet): 5 Height (Inches): 10.00 Weight (Pounds): 190 Objective WDWN AA man NCAT supple CTA RRR abd less distended, tympanitic, wound OK no edema RALPH GRAY February 27, 2017 15:16
--- NOTE | 2017-02-27 15:43 | General Surgery Progress Note ---
General Surgery-Progress Note Subjective Procedure Performed lap appy Symptoms: BM Objective Last 24 Hour Vital Signs Date Time Temp Pulse Resp B/P Pulse Ox O2 Delivery O2 Flow Rate FiO2 02/27/17 12:00 98.2 82 20 142/78 99 Room Air 02/27/17 08:00 97.3 82 18 123/80 98 Room Air 02/27/17 04:00 98.6 71 18 117/63 97 Room Air 02/27/17 00:00 97.7 81 18 152/68 98 Room Air 02/26/17 20:00 98.2 84 18 115/69 100 Room Air 02/26/17 16:00 97.7 84 20 113/67 99 Room Air I&O Intake and Output 02/26/17 02/27/17 19:00 07:00 Intake Total 1500 ml Output Total 600 ml Balance 900 ml IV Total 1500 ml Output Urine Total 400 ml Emesis 200 ml # Voids 5 3 Respiratory: clear Abdomen: soft, non-tender, present bowel sounds Extremities: no edema, no tenderness Laboratory Tests Test 02/27/17 06:32 White Blood Count 10.4 K/UL (4.8-10.8) Red Blood Count 4.64 M/UL (4.70-6.10) L Hemoglobin 13.4 G/DL (14.2-18.0) L Hematocrit 41.1 % (42.0-52.0) L Mean Corpuscular Volume 89 FL (80-99) Mean Corpuscular Hemoglobin 28.9 PG (27.0-31.0) Mean Corpuscular Hemoglobin Concent 32.5 G/DL (32.0-36.0) Red Cell Distribution Width 12.5 % (11.6-14.8) Platelet Count 260 K/UL (150-450) Mean Platelet Volume 8.3 FL (6.5-10.1) Neutrophils (%) (Auto) 65.2 % (45.0-75.0) Lymphocytes (%) (Auto) 18.5 % (20.0-45.0) L Monocytes (%) (Auto) 13.4 % (1.0-10.0) H Eosinophils (%) (Auto) 1.8 % (0.0-3.0) Basophils (%) (Auto) 1.1 % (0.0-2.0) Sodium Level 139 mEQ/L (135-145) Potassium Level 3.5 mEQ/L (3.4-4.9) Chloride Level 95 mEQ/L (98-107) L Carbon Dioxide Level 30 mEQ/L (20-30) Anion Gap 14 (5-15) Blood Urea Nitrogen 18 mg/dL (7-23) Creatinine 1.0 mg/dL (0.7-1.2) Estimat Glomerular Filtration Rate > 60 mL/min (>60) Glucose Level 118 mg/dL (74-106) H Calcium Level 9.1 mg/dL (8.6-10.2) Total Bilirubin 0.5 mg/dL (0.0-1.2) Aspartate Amino Transf (AST/SGOT) 17 U/L (5-40) Alanine Aminotransferase (ALT/SGPT) 10 U/L (3-41) Alkaline Phosphatase 43 U/L (40-129) C-Reactive Protein, Quantitative 9.1 mg/dL (< 0.5) H Total Protein 7.1 g/dL (6.6-8.7) Albumin 3.5 g/dL (3.5-5.2) Globulin 3.6 g/dL Albumin/Globulin Ratio 0.9 (1.0-2.7) L Assessment Additional Comments S/P Lap Appy with vomiting Plan Additional Comments continue current treatment CANDIE DRIVER February 27, 2017 15:43
[2017-02-27] MEDS ORDERED: D5 1/2NS 1000ml IV ONE ×2 (15:56→16:08)
[2017-02-27 16:00] VITALS: BP 124/79
[2017-02-27 20:00] VITALS: BP 135/91
[2017-02-27] MEDS: Piperacillin/Tazobactam 3.375 GM in NS 110 ML IVPB SCH (23:01)
[2017-02-28] VITALS (7 sets, daily range): BP systolic 115–153; BP diastolic 51–79
[2017-02-28] MEDS: D5 1/2NS 1,000 ML IV SCH ×4 (05:04→23:34)
[2017-02-28] MEDS: metroNIDAZOLE 500mg 100 ML IVPB SCH ×3 (05:04→20:34)
[2017-02-28] MEDS: Piperacillin/Tazobactam 3.375 GM in NS 110 ML IVPB SCH (06:00)
[2017-02-28 07:43] LABS: EOSINOPHILS % (AUTO) 1.1 % (0.0-3.0); LYMPHOCYTES % (AUTO) 18.8 % (20.0-45.0); MEAN CORPUSCULAR HEMOGLOBIN 28.3 PG (27.0-31.0); MEAN CORPUSCULAR HGB CONC 31.8 G/DL (32.0-36.0); MEAN CORPUSCULAR VOLUME 89 FL (80-99); MEAN PLATELET VOLUME 8.3 FL (6.5-10.1); MONOCYTES % (AUTO) 11.6 % (1.0-10.0); NEUTROPHILS % (AUTO) 66.5 % (45.0-75.0); PLATELET COUNT 291 K/UL (150-450); RED BLOOD COUNT 4.88 M/UL (4.70-6.10); RED CELL DISTRIBUTION WIDTH 12.4 % (11.6-14.8); WHITE BLOOD COUNT 10.9 K/UL (4.8-10.8)
[2017-02-28] MEDS: Pantoprazole Inj IVP SCH (08:28)
[2017-02-28 08:36] LABS: ANION GAP 15 (5-15); CALCIUM 9.2 mg/dL (8.6-10.2); CARBON DIOXIDE 29 mEQ/L (20-30); CHLORIDE 96 mEQ/L (98-107); CRP QUANT 5.6 mg/dL (< 0.5); GLOMERULAR FILTRATION RATE > 60 mL/min (>60); HEMOLYSIS 5; POTASSIUM 3.4 mEQ/L (3.4-4.9); SODIUM 140 mEQ/L (135-145)
[2017-02-28] MEDS: Ampicillin/Sulbactam Sod 3 GM in NS 110 ML IVPB SCH ×3 (12:02→23:34)
--- NOTE | 2017-02-28 12:54 | General Surgery Progress Note ---
General Surgery-Progress Note Subjective Procedure Performed lap appy Symptoms: BM Objective Last 24 Hour Vital Signs Date Time Temp Pulse Resp B/P Pulse Ox O2 Delivery O2 Flow Rate FiO2 02/28/17 12:00 97.9 76 20 138/74 99 Room Air 02/28/17 08:00 97.0 78 20 153/79 98 Room Air 02/28/17 04:05 97.7 64 21 130/72 98 Room Air 02/28/17 00:00 97.7 78 18 128/70 99 Room Air 02/27/17 20:00 98.4 74 19 135/91 99 Room Air 02/27/17 16:00 97.7 99 20 124/79 96 Room Air I&O Intake and Output 02/27/17 02/28/17 19:00 07:00 Intake Total 1750 ml 2160 ml Balance 1750 ml 2160 ml Intake Oral 250 ml 360 ml IV Total 1500 ml 1800 ml # Voids 2 Dressing: dry Drains: none Respiratory: clear Abdomen: soft, flat, non-tender, present bowel sounds Extremities: no edema, no tenderness Laboratory Tests Test 02/28/17 05:25 White Blood Count 10.9 K/UL (4.8-10.8) H Red Blood Count 4.88 M/UL (4.70-6.10) Hemoglobin 13.8 G/DL (14.2-18.0) L Hematocrit 43.5 % (42.0-52.0) Mean Corpuscular Volume 89 FL (80-99) Mean Corpuscular Hemoglobin 28.3 PG (27.0-31.0) Mean Corpuscular Hemoglobin Concent 31.8 G/DL (32.0-36.0) L Red Cell Distribution Width 12.4 % (11.6-14.8) Platelet Count 291 K/UL (150-450) Mean Platelet Volume 8.3 FL (6.5-10.1) Neutrophils (%) (Auto) 66.5 % (45.0-75.0) Lymphocytes (%) (Auto) 18.8 % (20.0-45.0) L Monocytes (%) (Auto) 11.6 % (1.0-10.0) H Eosinophils (%) (Auto) 1.1 % (0.0-3.0) Basophils (%) (Auto) 2.0 % (0.0-2.0) Sodium Level 140 mEQ/L (135-145) Potassium Level 3.4 mEQ/L (3.4-4.9) Chloride Level 96 mEQ/L (98-107) L Carbon Dioxide Level 29 mEQ/L (20-30) Anion Gap 15 (5-15) Blood Urea Nitrogen 14 mg/dL (7-23) Creatinine 1.0 mg/dL (0.7-1.2) Estimat Glomerular Filtration Rate > 60 mL/min (>60) Glucose Level 112 mg/dL (74-106) H Calcium Level 9.2 mg/dL (8.6-10.2) C-Reactive Protein, Quantitative 5.6 mg/dL (< 0.5) H Assessment Additional Comments S/P lap appy Plan Additional Comments continue as before CANDIE DRIVER February 28, 2017 12:54
--- NOTE | 2017-02-28 13:00 | General Progress Note ---
Assessment/Plan Problem List: (1) Abdominal pain ICD Codes: R10.9 - Unspecified abdominal pain SNOMED: 30351552 Qualifiers: Qualified Codes: R10.31 - Right lower quadrant pain (2) Appendicitis, acute ICD Codes: K35.80 - Unspecified acute appendicitis SNOMED: 41631119 Qualifiers: Qualified Codes: K35.80 - Unspecified acute appendicitis Status: progressing Assessment/Plan s/p appendectomy still has pain at surgical site afebrile abx by id Subjective Gastrointestinal/Abdominal: Reports: abdomen distended, abdominal pain Allergies: Coded Allergies: No Known Allergies (Unverified , 02/22/17) Objective Last 24 Hour Vital Signs Date Time Temp Pulse Resp B/P Pulse Ox O2 Delivery O2 Flow Rate FiO2 02/28/17 12:00 97.9 76 20 138/74 99 Room Air 02/28/17 08:00 97.0 78 20 153/79 98 Room Air 02/28/17 04:05 97.7 64 21 130/72 98 Room Air 02/28/17 00:00 97.7 78 18 128/70 99 Room Air 02/27/17 20:00 98.4 74 19 135/91 99 Room Air 02/27/17 16:00 97.7 99 20 124/79 96 Room Air Intake and Output 02/27/17 02/28/17 19:00 07:00 Intake Total 1750 ml 2160 ml Balance 1750 ml 2160 ml Intake Oral 250 ml 360 ml IV Total 1500 ml 1800 ml # Voids 2 Laboratory Tests 02/28/17 05:25: White Blood Count 10.9H, Red Blood Count 4.88, Hemoglobin 13.8L, Hematocrit 43.5 , Mean Corpuscular Volume 89, Mean Corpuscular Hemoglobin 28.3, Mean Corpuscular Hemoglobin Concent 31.8L, Red Cell Distribution Width 12.4, Platelet Count 291, Mean Platelet Volume 8.3, Neutrophils (%) (Auto) 66.5, Lymphocytes (%) (Auto) 18.8L, Monocytes (%) (Auto) 11.6H, Eosinophils (%) (Auto ) 1.1, Basophils (%) (Auto) 2.0, Sodium Level 140, Potassium Level 3.4, Chloride Level 96L, Carbon Dioxide Level 29, Anion Gap 15, Blood Urea Nitrogen 14, Creatinine 1.0, Estimat Glomerular Filtration Rate > 60, Glucose Level 112H , Calcium Level 9.2, C-Reactive Protein, Quantitative 5.6H Height (Feet): 5 Height (Inches): 10.00 Weight (Pounds): 190 Kay Martinez MD February 28, 2017 13:00
--- NOTE | 2017-02-28 15:30 | Infectious Diseases Prog Note ---
Assessment/Plan Problems: (1) Appendicitis, acute Assessment & Plan: S/P surgical resection with POST OP illeus, improving, repeated CT abdomen showed illeus only , with no evidence of perforation or leak , will switch zosyn to unasyn for now, since he developed vomiting , as an empiric coverage for now, advance diet as tolerated , general surgery is following (2) Abdominal pain Assessment & Plan: improved, continue pain medicine as per surgery (3) Ileus Assessment & Plan: improving, continue nausea meds with hydration, advance diet as tolerated Subjective Constitutional: Reports: no symptoms HEENT: Reports: no symptoms Respiratory: Reports: no symptoms Cardiovascular: Reports: no symptoms Gastrointestinal/Abdominal: Reports: no symptoms Genitourinary: Reports: no symptoms Neurologic: Reports: no symptoms Psychiatric: Reports: no symptoms Skin: Reports: no symptoms Allergies: Coded Allergies: No Known Allergies (Unverified , 02/22/17) Subjective he passed glenny, and had bowel movements, no nausea or vomiting, still NPO Objective Vital Signs Last 24 Hour Vital Signs Date Time Temp Pulse Resp B/P Pulse Ox O2 Delivery O2 Flow Rate FiO2 02/28/17 12:00 97.9 76 20 138/74 99 Room Air 02/28/17 08:00 97.0 78 20 153/79 98 Room Air 02/28/17 04:05 97.7 64 21 130/72 98 Room Air 02/28/17 00:00 97.7 78 18 128/70 99 Room Air 02/27/17 20:00 98.4 74 19 135/91 99 Room Air 02/27/17 16:00 97.7 99 20 124/79 96 Room Air Height (Feet): 5 Height (Inches): 10.00 Weight (Pounds): 190 General Appearance: WD/WN, no acute distress HEENT: normocephalic, atraumatic, anicteric, mucous membranes moist Respiratory/Chest: chest wall non-tender, lungs clear, normal breath sounds, no respiratory distress, no accessory muscle use Cardiovascular: normal peripheral pulses, normal rate, regular rhythm, no gallop/murmur, no JVD Abdomen: normal bowel sounds, soft, non tender, no organomegaly, non distended , no mass Extremities: no cyanosis, no clubbing Skin: no rash, no lesions Microbiology Date/Time Source Procedure Growth Status 02/25/17 23:00 Stool Clostridium difficile Toxin Assay - Final Complete Laboratory Tests Test 02/28/17 05:25 White Blood Count 10.9 K/UL (4.8-10.8) H Red Blood Count 4.88 M/UL (4.70-6.10) Hemoglobin 13.8 G/DL (14.2-18.0) L Hematocrit 43.5 % (42.0-52.0) Mean Corpuscular Volume 89 FL (80-99) Mean Corpuscular Hemoglobin 28.3 PG (27.0-31.0) Mean Corpuscular Hemoglobin Concent 31.8 G/DL (32.0-36.0) L Red Cell Distribution Width 12.4 % (11.6-14.8) Platelet Count 291 K/UL (150-450) Mean Platelet Volume 8.3 FL (6.5-10.1) Neutrophils (%) (Auto) 66.5 % (45.0-75.0) Lymphocytes (%) (Auto) 18.8 % (20.0-45.0) L Monocytes (%) (Auto) 11.6 % (1.0-10.0) H Eosinophils (%) (Auto) 1.1 % (0.0-3.0) Basophils (%) (Auto) 2.0 % (0.0-2.0) Sodium Level 140 mEQ/L (135-145) Potassium Level 3.4 mEQ/L (3.4-4.9) Chloride Level 96 mEQ/L (98-107) L Carbon Dioxide Level 29 mEQ/L (20-30) Anion Gap 15 (5-15) Blood Urea Nitrogen 14 mg/dL (7-23) Creatinine 1.0 mg/dL (0.7-1.2) Estimat Glomerular Filtration Rate > 60 mL/min (>60) Glucose Level 112 mg/dL (74-106) H Calcium Level 9.2 mg/dL (8.6-10.2) C-Reactive Protein, Quantitative 5.6 mg/dL (< 0.5) H Current Medications Medications (Trade) Dose Ordered Sig/Samra Route PRN Reason Start Time Stop Time Status Last Admin Dose Admin Acetaminophen (Tylenol) 650 mg Q4H PRN ORAL Mild Pain/Temp > 100.5 02/23/17 21:15 03/25/17 21:14 02/24/17 18:02 Ampicillin Sodium/ Sulbactam Sodium/ Sodium Chloride (Unasyn/Sodium Chloride) 110 ml @ 220 mls/hr Q6HR IVPB 02/28/17 12:00 03/07/17 11:59 02/28/17 12:02 Dextrose/Sodium Chloride 1,000 ml @ 150 mls/hr Q6H40M IV 02/27/17 08:45 03/29/17 08:44 02/28/17 05:04 Hydromorphone HCl (Dilaudid) 0.5 mg Q3H PRN IVP Pain Score 1-3 02/22/17 21:45 03/01/17 21:44 02/23/17 08:24 Hydromorphone HCl (Dilaudid) 1 mg Q3H PRN IVP pain score 4-6 02/22/17 21:45 03/01/17 21:44 02/23/17 12:20 Metoclopramide HCl (Reglan) 10 mg Q4HR PRN IVP Nausea & Vomiting 02/24/17 23:00 03/26/17 22:59 Metronidazole 100 ml @ 100 mls/hr Q8HR@0500,1300,2100 IVPB 02/25/17 21:00 03/04/17 20:59 02/28/17 13:38 Ondansetron HCl 4 mg 4 mg Q4HR PRN IVP Nausea & Vomiting 02/24/17 23:00 03/26/17 22:59 02/25/17 01:42 Pantoprazole (Protonix) 40 mg DAILY IVP 02/23/17 09:00 03/25/17 08:59 02/28/17 08:28 Keisha Myers M.D. February 28, 2017 15:30
--- NOTE | 2017-02-28 22:22 | General Progress Note ---
Assessment/Plan Assessment/Plan Assessment - acute appendicitis - s/p lap appy - POD 6 s/p appy - Improved WBC, CRP, Cr, vomiting, diarrhea all encouraging Recommendations - diet per surgery - OOB - abx - surgical and ID f/u Subjective Allergies: Coded Allergies: No Known Allergies (Unverified , 02/22/17) Subjective Better no further vomiting hiccups improving spitting out stools more firm Objective Last 24 Hour Vital Signs Date Time Temp Pulse Resp B/P Pulse Ox O2 Delivery O2 Flow Rate FiO2 02/28/17 20:02 99.9 83 20 115/63 99 Room Air 02/28/17 16:00 99.0 76 20 115/51 100 Room Air 02/28/17 12:00 97.9 76 20 138/74 99 Room Air 02/28/17 08:00 97.0 78 20 153/79 98 Room Air 02/28/17 04:05 97.7 64 21 130/72 98 Room Air 02/28/17 00:00 97.7 78 18 128/70 99 Room Air Intake and Output 02/27/17 02/28/17 19:00 07:00 Intake Total 1750 ml 2160 ml Balance 1750 ml 2160 ml Intake Oral 250 ml 360 ml IV Total 1500 ml 1800 ml # Voids 2 Laboratory Tests 02/28/17 05:25: White Blood Count 10.9H, Red Blood Count 4.88, Hemoglobin 13.8L, Hematocrit 43.5 , Mean Corpuscular Volume 89, Mean Corpuscular Hemoglobin 28.3, Mean Corpuscular Hemoglobin Concent 31.8L, Red Cell Distribution Width 12.4, Platelet Count 291, Mean Platelet Volume 8.3, Neutrophils (%) (Auto) 66.5, Lymphocytes (%) (Auto) 18.8L, Monocytes (%) (Auto) 11.6H, Eosinophils (%) (Auto ) 1.1, Basophils (%) (Auto) 2.0, Sodium Level 140, Potassium Level 3.4, Chloride Level 96L, Carbon Dioxide Level 29, Anion Gap 15, Blood Urea Nitrogen 14, Creatinine 1.0, Estimat Glomerular Filtration Rate > 60, Glucose Level 112H , Calcium Level 9.2, C-Reactive Protein, Quantitative 5.6H Height (Feet): 5 Height (Inches): 10.00 Weight (Pounds): 190 Objective WDWN AA man NCAT supple CTA RRR abd less distended, tympanitic, wound OK no edema RALPH GRAY February 28, 2017 22:22
[2017-03-01 04:00] VITALS: BP 112/69
[2017-03-01] MEDS: metroNIDAZOLE 500mg 100 ML IVPB SCH ×2 (04:48→12:29)
[2017-03-01] MEDS: Ampicillin/Sulbactam Sod 3 GM in NS 110 ML IVPB SCH ×3 (06:00→17:44)
[2017-03-01 08:00] VITALS: BP 129/72
[2017-03-01 08:02] LABS: BASOPHILS % (AUTO) 1.5 % (0.0-2.0); EOSINOPHILS % (AUTO) 2.7 % (0.0-3.0); LYMPHOCYTES % (AUTO) 27.3 % (20.0-45.0); MEAN CORPUSCULAR HEMOGLOBIN 28.9 PG (27.0-31.0); MEAN CORPUSCULAR HGB CONC 32.6 G/DL (32.0-36.0); MEAN CORPUSCULAR VOLUME 89 FL (80-99); MEAN PLATELET VOLUME 7.3 FL (6.5-10.1); MONOCYTES % (AUTO) 14.7 % (1.0-10.0); NEUTROPHILS % (AUTO) 53.8 % (45.0-75.0); PLATELET COUNT 283 K/UL (150-450); RED BLOOD COUNT 4.62 M/UL (4.70-6.10); RED CELL DISTRIBUTION WIDTH 12.3 % (11.6-14.8); WHITE BLOOD COUNT 8.9 K/UL (4.8-10.8)
[2017-03-01 08:14] LABS: ANION GAP 12 (5-15); CALCIUM 8.8 mg/dL (8.6-10.2); CARBON DIOXIDE 30 mEQ/L (20-30); CHLORIDE 96 mEQ/L (98-107); GLOMERULAR FILTRATION RATE > 60 mL/min (>60); HEMOLYSIS 3; POTASSIUM 3.3 mEQ/L (3.4-4.9); SODIUM 138 mEQ/L (135-145)
[2017-03-01] MEDS: Pantoprazole Inj IVP SCH (08:53)
[2017-03-01] MEDS: D5 1/2NS 1,000 ML IV SCH ×3 (08:53→17:44)
--- NOTE | 2017-03-01 11:51 | General Progress Note ---
Assessment/Plan Problem List: (1) Abdominal pain ICD Codes: R10.9 - Unspecified abdominal pain SNOMED: [id number] Qualifiers: Qualified Codes: R10.31 - Right lower quadrant pain (2) Appendicitis, acute ICD Codes: K35.80 - Unspecified acute appendicitis SNOMED: [id number] Qualifiers: Qualified Codes: K35.80 - Unspecified acute appendicitis Status: progressing Assessment/Plan s/p appendectomy sepsis abx per id afebrile today surgeon is in charge of nutrition Subjective ROS Limited/Unobtainable: Yes Constitutional: Reports: no symptoms Allergies: Coded Allergies: No Known Allergies (Unverified , 02/22/17) Objective Last 24 Hour Vital Signs Date Time Temp Pulse Resp B/P Pulse Ox O2 Delivery O2 Flow Rate FiO2 03/01/17 08:00 97.9 74 20 129/72 98 Room Air 03/01/17 04:00 98.8 81 18 112/69 99 Room Air 02/28/17 23:58 99.3 88 19 132/70 100 Room Air 02/28/17 20:02 99.9 83 20 115/63 99 Room Air 02/28/17 16:00 99.0 76 20 115/51 100 Room Air 02/28/17 12:00 97.9 76 20 138/74 99 Room Air Intake and Output 02/28/17 03/01/17 19:00 07:00 Intake Total 1620 ml 480 ml Balance 1620 ml 480 ml Intake Oral 960 ml 480 ml IV Total 660 ml # Voids 2 5 # Bowel Movements 2 1 Laboratory Tests 03/01/17 07:25: White Blood Count 8.9, Red Blood Count 4.62L, Hemoglobin 13.4L, Hematocrit 40.9L , Mean Corpuscular Volume 89, Mean Corpuscular Hemoglobin 28.9, Mean Corpuscular Hemoglobin Concent 32.6, Red Cell Distribution Width 12.3, Platelet Count 283, Mean Platelet Volume 7.3, Neutrophils (%) (Auto) 53.8, Lymphocytes (% ) (Auto) 27.3, Monocytes (%) (Auto) 14.7H, Eosinophils (%) (Auto) 2.7, Basophils (%) (Auto) 1.5, Sodium Level 138, Potassium Level 3.3L, Chloride Level 96L, Carbon Dioxide Level 30, Anion Gap 12, Blood Urea Nitrogen 9, Creatinine 1.0, Estimat Glomerular Filtration Rate > 60, Glucose Level 117H, Calcium Level 8.8, C-Reactive Protein, Quantitative 4.0H Height (Feet): 5 Height (Inches): 10.00 Weight (Pounds): 190 EENT: PERRL/EOMI Neck: supple Cardiovascular: normal rate Respiratory/Chest: lungs clear Abdomen: soft Kay Martinez MD March 01, 2017 11:51
[2017-03-01 12:00] VITALS: BP 123/62
--- NOTE | 2017-03-01 12:41 | General Surgery Progress Note ---
General Surgery-Progress Note Subjective Procedure Performed lap appy Symptoms: improved, BM Objective Last 24 Hour Vital Signs Date Time Temp Pulse Resp B/P Pulse Ox O2 Delivery O2 Flow Rate FiO2 03/01/17 08:00 97.9 74 20 129/72 98 Room Air 03/01/17 04:00 98.8 81 18 112/69 99 Room Air 02/28/17 23:58 99.3 88 19 132/70 100 Room Air 02/28/17 20:02 99.9 83 20 115/63 99 Room Air 02/28/17 16:00 99.0 76 20 115/51 100 Room Air I&O Intake and Output 02/28/17 03/01/17 19:00 07:00 Intake Total 1620 ml 630 ml Balance 1620 ml 630 ml Intake Oral 960 ml 480 ml IV Total 660 ml 150 ml # Voids 2 5 # Bowel Movements 2 1 Drains: none Respiratory: clear Abdomen: soft, non-tender, present bowel sounds Extremities: no edema, no tenderness Laboratory Tests Test 03/01/17 07:25 White Blood Count 8.9 K/UL (4.8-10.8) Red Blood Count 4.62 M/UL (4.70-6.10) L Hemoglobin 13.4 G/DL (14.2-18.0) L Hematocrit 40.9 % (42.0-52.0) L Mean Corpuscular Volume 89 FL (80-99) Mean Corpuscular Hemoglobin 28.9 PG (27.0-31.0) Mean Corpuscular Hemoglobin Concent 32.6 G/DL (32.0-36.0) Red Cell Distribution Width 12.3 % (11.6-14.8) Platelet Count 283 K/UL (150-450) Mean Platelet Volume 7.3 FL (6.5-10.1) Neutrophils (%) (Auto) 53.8 % (45.0-75.0) Lymphocytes (%) (Auto) 27.3 % (20.0-45.0) Monocytes (%) (Auto) 14.7 % (1.0-10.0) H Eosinophils (%) (Auto) 2.7 % (0.0-3.0) Basophils (%) (Auto) 1.5 % (0.0-2.0) Sodium Level 138 mEQ/L (135-145) Potassium Level 3.3 mEQ/L (3.4-4.9) L Chloride Level 96 mEQ/L (98-107) L Carbon Dioxide Level 30 mEQ/L (20-30) Anion Gap 12 (5-15) Blood Urea Nitrogen 9 mg/dL (7-23) Creatinine 1.0 mg/dL (0.7-1.2) Estimat Glomerular Filtration Rate > 60 mL/min (>60) Glucose Level 117 mg/dL (74-106) H Calcium Level 8.8 mg/dL (8.6-10.2) C-Reactive Protein, Quantitative 4.0 mg/dL (< 0.5) H Assessment Additional Comments S/P Lap Appy Plan Additional Comments advance diet CANDIE DRIVER March 01, 2017 12:41
[2017-03-01] MEDS ORDERED: traMADol 50mg tab ORAL PRN (12:45)
--- NOTE | 2017-03-01 13:28 | General Progress Note ---
Assessment/Plan Assessment/Plan Assessment - acute appendicitis - s/p lap appy - POD 7 s/p appy - Improving Recommendations - diet per surgery - OOB - abx - surgical and ID f/u Subjective Allergies: Coded Allergies: No Known Allergies (Unverified , 02/22/17) Subjective Better no further vomiting hiccups nearly gone spitting out stools more firm tolerating full liquids Objective Last 24 Hour Vital Signs Date Time Temp Pulse Resp B/P Pulse Ox O2 Delivery O2 Flow Rate FiO2 03/01/17 12:00 97.9 72 20 123/62 100 Room Air 03/01/17 08:00 97.9 74 20 129/72 98 Room Air 03/01/17 04:00 98.8 81 18 112/69 99 Room Air 02/28/17 23:58 99.3 88 19 132/70 100 Room Air 02/28/17 20:02 99.9 83 20 115/63 99 Room Air 02/28/17 16:00 99.0 76 20 115/51 100 Room Air Intake and Output 02/28/17 03/01/17 19:00 07:00 Intake Total 1620 ml 630 ml Balance 1620 ml 630 ml Intake Oral 960 ml 480 ml IV Total 660 ml 150 ml # Voids 2 5 # Bowel Movements 2 1 Laboratory Tests 03/01/17 07:25: White Blood Count 8.9, Red Blood Count 4.62L, Hemoglobin 13.4L, Hematocrit 40.9L , Mean Corpuscular Volume 89, Mean Corpuscular Hemoglobin 28.9, Mean Corpuscular Hemoglobin Concent 32.6, Red Cell Distribution Width 12.3, Platelet Count 283, Mean Platelet Volume 7.3, Neutrophils (%) (Auto) 53.8, Lymphocytes (% ) (Auto) 27.3, Monocytes (%) (Auto) 14.7H, Eosinophils (%) (Auto) 2.7, Basophils (%) (Auto) 1.5, Sodium Level 138, Potassium Level 3.3L, Chloride Level 96L, Carbon Dioxide Level 30, Anion Gap 12, Blood Urea Nitrogen 9, Creatinine 1.0, Estimat Glomerular Filtration Rate > 60, Glucose Level 117H, Calcium Level 8.8, C-Reactive Protein, Quantitative 4.0H Height (Feet): 5 Height (Inches): 10.00 Weight (Pounds): 190 Objective WDWN AA man NCAT supple CTA RRR abd less distended, tympanitic, wound OK no edema RALPH GRAY March 01, 2017 13:28
--- NOTE | 2017-03-01 15:19 | Infectious Diseases Prog Note ---
Assessment/Plan Problems: (1) Appendicitis, acute Assessment & Plan: S/P surgical resection with POST OP illeus, improving, repeated CT abdomen showed illeus only , with no evidence of perforation or leak , continue unasyn for now, since he tolerates it well , as an empiric coverage for now, advance diet as tolerated , general surgery is following (2) Abdominal pain Assessment & Plan: improved, continue pain medicine as per surgery (3) Ileus Assessment & Plan: improving, continue nausea meds with hydration, advance diet as tolerated Subjective Constitutional: Reports: no symptoms HEENT: Reports: no symptoms Respiratory: Reports: no symptoms Cardiovascular: Reports: no symptoms Gastrointestinal/Abdominal: Reports: other Genitourinary: Reports: no symptoms Neurologic: Reports: no symptoms Psychiatric: Reports: no symptoms Skin: Reports: no symptoms Endocrine: Reports: no symptoms Allergies: Coded Allergies: No Known Allergies (Unverified , 02/22/17) Subjective he passed glenny, and had bowel movements, no nausea or vomiting, still NPO Objective Vital Signs Last 24 Hour Vital Signs Date Time Temp Pulse Resp B/P Pulse Ox O2 Delivery O2 Flow Rate FiO2 03/01/17 12:00 97.9 72 20 123/62 100 Room Air 03/01/17 08:00 97.9 74 20 129/72 98 Room Air 03/01/17 04:00 98.8 81 18 112/69 99 Room Air 02/28/17 23:58 99.3 88 19 132/70 100 Room Air 02/28/17 20:02 99.9 83 20 115/63 99 Room Air 02/28/17 16:00 99.0 76 20 115/51 100 Room Air Height (Feet): 5 Height (Inches): 10.00 Weight (Pounds): 190 General Appearance: WD/WN, no acute distress HEENT: normocephalic, atraumatic, anicteric, mucous membranes moist Respiratory/Chest: chest wall non-tender, lungs clear, normal breath sounds, no respiratory distress, no accessory muscle use Cardiovascular: normal peripheral pulses, normal rate, regular rhythm, no gallop/murmur Abdomen: normal bowel sounds, soft, non tender, no organomegaly, non distended , no mass Extremities: no cyanosis, no clubbing Skin: no rash, no lesions Laboratory Tests Test 03/01/17 07:25 White Blood Count 8.9 K/UL (4.8-10.8) Red Blood Count 4.62 M/UL (4.70-6.10) L Hemoglobin 13.4 G/DL (14.2-18.0) L Hematocrit 40.9 % (42.0-52.0) L Mean Corpuscular Volume 89 FL (80-99) Mean Corpuscular Hemoglobin 28.9 PG (27.0-31.0) Mean Corpuscular Hemoglobin Concent 32.6 G/DL (32.0-36.0) Red Cell Distribution Width 12.3 % (11.6-14.8) Platelet Count 283 K/UL (150-450) Mean Platelet Volume 7.3 FL (6.5-10.1) Neutrophils (%) (Auto) 53.8 % (45.0-75.0) Lymphocytes (%) (Auto) 27.3 % (20.0-45.0) Monocytes (%) (Auto) 14.7 % (1.0-10.0) H Eosinophils (%) (Auto) 2.7 % (0.0-3.0) Basophils (%) (Auto) 1.5 % (0.0-2.0) Sodium Level 138 mEQ/L (135-145) Potassium Level 3.3 mEQ/L (3.4-4.9) L Chloride Level 96 mEQ/L (98-107) L Carbon Dioxide Level 30 mEQ/L (20-30) Anion Gap 12 (5-15) Blood Urea Nitrogen 9 mg/dL (7-23) Creatinine 1.0 mg/dL (0.7-1.2) Estimat Glomerular Filtration Rate > 60 mL/min (>60) Glucose Level 117 mg/dL (74-106) H Calcium Level 8.8 mg/dL (8.6-10.2) C-Reactive Protein, Quantitative 4.0 mg/dL (< 0.5) H Current Medications Medications (Trade) Dose Ordered Sig/Samra Route PRN Reason Start Time Stop Time Status Last Admin Dose Admin Acetaminophen (Tylenol) 650 mg Q4H PRN ORAL Mild Pain/Temp > 100.5 03/01/17 12:45 03/31/17 12:44 Ampicillin Sodium/ Sulbactam Sodium/ Sodium Chloride (Unasyn/Sodium Chloride) 110 ml @ 220 mls/hr Q6HR IVPB 02/28/17 12:00 03/07/17 11:59 03/01/17 12:27 Dextrose/Sodium Chloride 1,000 ml @ 150 mls/hr Q6H40M IV 02/27/17 08:45 03/29/17 08:44 03/01/17 08:53 Metronidazole 100 ml @ 100 mls/hr Q8HR@0500,1300,2100 IVPB 02/25/17 21:00 03/04/17 20:59 03/01/17 12:29 Ondansetron HCl 4 mg 4 mg Q4HR PRN IVP Nausea & Vomiting 02/24/17 23:00 03/26/17 22:59 02/25/17 01:42 Pantoprazole (Protonix) 40 mg DAILY ORAL 03/02/17 09:00 04/01/17 08:59 Tramadol HCl (Ultram) 50 mg Q6H PRN ORAL Moderate Pain (Pain Scale 4-6) 03/01/17 12:45 03/08/17 12:44 Keisha Myers M.D. March 01, 2017 15:19
[2017-03-01 16:00] VITALS: BP 135/86
[2017-03-01 20:00] VITALS: BP 130/73
[2017-03-01] MEDS: metroNIDAZOLE 500mg tab ORAL SCH (21:13)
[2017-03-02] VITALS: BP 123/64
[2017-03-02] MEDS: Ampicillin/Sulbactam Sod 3 GM in NS 110 ML IVPB SCH ×3 (00:23→12:00)
[2017-03-02] MEDS: D5 1/2NS 1,000 ML IV SCH ×2 (00:24→09:18)
[2017-03-02 04:00] VITALS: BP 121/72
[2017-03-02] MEDS: metroNIDAZOLE 500mg tab ORAL SCH ×2 (06:03→13:30)
[2017-03-02 08:07] LABS: BASOPHILS % (AUTO) 1.3 % (0.0-2.0); EOSINOPHILS % (AUTO) 4.2 % (0.0-3.0); LYMPHOCYTES % (AUTO) 29.2 % (20.0-45.0); MEAN CORPUSCULAR HEMOGLOBIN 28.7 PG (27.0-31.0); MEAN CORPUSCULAR HGB CONC 32.7 G/DL (32.0-36.0); MEAN CORPUSCULAR VOLUME 88 FL (80-99); MEAN PLATELET VOLUME 7.3 FL (6.5-10.1); NEUTROPHILS % (AUTO) 51.2 % (45.0-75.0); PLATELET COUNT 276 K/UL (150-450); RED BLOOD COUNT 4.31 M/UL (4.70-6.10); RED CELL DISTRIBUTION WIDTH 12.1 % (11.6-14.8); WHITE BLOOD COUNT 6.5 K/UL (4.8-10.8)
[2017-03-02 08:08] LABS: ANION GAP 10 (5-15); CALCIUM 8.5 mg/dL (8.6-10.2); CARBON DIOXIDE 30 mEQ/L (20-30); CHLORIDE 99 mEQ/L (98-107); CRP QUANT 2.3 mg/dL (< 0.5); GLOMERULAR FILTRATION RATE > 60 mL/min (>60); HEMOLYSIS 4; POTASSIUM 3.3 mEQ/L (3.4-4.9); SODIUM 139 mEQ/L (135-145)
[2017-03-02 09:00] VITALS: BP 143/67
--- NOTE | 2017-03-02 09:23 | General Progress Note ---
Assessment/Plan Problem List: (1) Abdominal pain ICD Codes: R10.9 - Unspecified abdominal pain SNOMED: 90757887 Qualifiers: Qualified Codes: R10.31 - Right lower quadrant pain (2) Appendicitis, acute ICD Codes: K35.80 - Unspecified acute appendicitis SNOMED: 93674676 Qualifiers: Qualified Codes: K35.80 - Unspecified acute appendicitis Status: progressing Assessment/Plan s/p appendectomy tolerating diet advance diet per surgeon dc per surgeon abx per id Subjective Gastrointestinal/Abdominal: Reports: abdominal pain Allergies: Coded Allergies: No Known Allergies (Unverified , 02/22/17) Objective Last 24 Hour Vital Signs Date Time Temp Pulse Resp B/P Pulse Ox O2 Delivery O2 Flow Rate FiO2 03/02/17 09:00 97.9 79 20 143/67 96 Room Air 03/02/17 04:00 98.1 75 16 121/72 100 Room Air 03/02/17 00:00 98.2 84 16 123/64 98 Room Air 03/01/17 20:00 99.0 83 16 130/73 100 Room Air 03/01/17 16:00 98.4 77 20 135/86 99 Room Air 03/01/17 12:00 97.9 72 20 123/62 100 Room Air Intake and Output 03/01/17 03/02/17 19:00 07:00 Intake Total 1430 ml 1475 ml Balance 1430 ml 1475 ml Intake Oral 720 ml 240 ml IV Total 710 ml 1235 ml # Voids 3 2 # Bowel Movements 1 1 Laboratory Tests 03/02/17 07:35: White Blood Count 6.5, Red Blood Count 4.31L, Hemoglobin 12.4L, Hematocrit 38.0L , Mean Corpuscular Volume 88, Mean Corpuscular Hemoglobin 28.7, Mean Corpuscular Hemoglobin Concent 32.7, Red Cell Distribution Width 12.1, Platelet Count 276, Mean Platelet Volume 7.3, Neutrophils (%) (Auto) 51.2, Lymphocytes (% ) (Auto) 29.2, Monocytes (%) (Auto) 14.0H, Eosinophils (%) (Auto) 4.2H, Basophils (%) (Auto) 1.3, Sodium Level 139, Potassium Level 3.3L, Chloride Level 99, Carbon Dioxide Level 30, Anion Gap 10, Blood Urea Nitrogen 8, Creatinine 1.0, Estimat Glomerular Filtration Rate > 60, Glucose Level 126H, Calcium Level 8.5L, C-Reactive Protein, Quantitative 2.3H Height (Feet): 5 Height (Inches): 10.00 Weight (Pounds): 190 Cardiovascular: normal rate Abdomen: tender Kay Martinez MD March 02, 2017 09:23
[2017-03-02 12:00] VITALS: BP 133/95
[2017-03-02] MEDS ORDERED: Tubing IV Secondary IV ONE ×2 (13:59)
[2017-03-02] MEDS ORDERED: D5 1/2NS 1000ml IV ONE ×2 (13:59)
--- NOTE | 2017-03-02 21:42 | General Progress Note ---
Assessment/Plan Assessment/Plan Assessment - acute appendicitis - s/p lap appy - POD 8 s/p appy - Improving Recommendations - diet per surgery - OOB - abx - outpatient f/u Subjective Allergies: Coded Allergies: No Known Allergies (Unverified , 02/22/17) Subjective Better no further vomiting hiccups nearly gone for discharge today Objective Last 24 Hour Vital Signs Date Time Temp Pulse Resp B/P Pulse Ox O2 Delivery O2 Flow Rate FiO2 03/02/17 12:00 98.2 85 19 133/95 99 Room Air 03/02/17 09:00 97.9 79 19 143/67 96 Room Air 03/02/17 04:00 98.1 75 16 121/72 100 Room Air 03/02/17 00:00 98.2 84 16 123/64 98 Room Air Intake and Output 03/01/17 03/02/17 19:00 07:00 Intake Total 1430 ml 1475 ml Balance 1430 ml 1475 ml Intake Oral 720 ml 240 ml IV Total 710 ml 1235 ml # Voids 3 2 # Bowel Movements 1 1 Laboratory Tests 03/02/17 07:35: White Blood Count 6.5, Red Blood Count 4.31L, Hemoglobin 12.4L, Hematocrit 38.0L , Mean Corpuscular Volume 88, Mean Corpuscular Hemoglobin 28.7, Mean Corpuscular Hemoglobin Concent 32.7, Red Cell Distribution Width 12.1, Platelet Count 276, Mean Platelet Volume 7.3, Neutrophils (%) (Auto) 51.2, Lymphocytes (% ) (Auto) 29.2, Monocytes (%) (Auto) 14.0H, Eosinophils (%) (Auto) 4.2H, Basophils (%) (Auto) 1.3, Sodium Level 139, Potassium Level 3.3L, Chloride Level 99, Carbon Dioxide Level 30, Anion Gap 10, Blood Urea Nitrogen 8, Creatinine 1.0, Estimat Glomerular Filtration Rate > 60, Glucose Level 126H, Calcium Level 8.5L, C-Reactive Protein, Quantitative 2.3H Height (Feet): 5 Height (Inches): 10.00 Weight (Pounds): 190 Objective WDWN AA man NCAT supple CTA RRR abd less distended, tympanitic, wound OK no edema RALPH GRAY March 02, 2017 21:42
--- NOTE | 2017-03-03 16:12 | Discharge Summary ---
Discharge Summary Hospital Course Date of Admission February 22, 2017 at 20:22 Date of Discharge March 02, 2017 at 14:00 Admitting Diagnosis appendicitis HPI Benito Pederson is a 46 year old male who was admitted on February 22, 2017 at 20:22 for Appendicitis Hospital Course [id number] Discharge Discharge Disposition Patient was discharged to Home (01) Discharge Diagnoses: Lakeisha Moses NP March 03, 2017 16:12
--- NOTE | 2017-03-04 04:38 | Discharge Summary ---
DATE OF ADMISSION: 02/22/2017 DATE OF DISCHARGE: 03/02/2017 ADMITTING DIAGNOSIS: Acute appendicitis. DISCHARGE DIAGNOSIS: Acute appendicitis. OPERATION: Laparoscopy appendectomy. COMPLICATIONS: For long time ileus and vomiting, resolved. INDICATION: This is a 46-year-old male, who presented to emergency room on 02/22/2017, complaining of 5 days history of abdominal pain. Apparently, the pain started on 02/17/2017, and was the periumbilical, but later it has localized to the lower abdomen mainly in the right lower quadrant. He denies any nausea or vomiting. He denied any fever. PHYSICAL EXAMINATION: Showed tenderness at right lower quadrant, but there was no rebound tenderness. He had mild guarding. CBC showed a WBC of 12,000 with normal differential, but the CAT scan of the abdomen was interpreted as acute appendicitis. HOSPITAL COURSE: The patient was admitted to hospital and immediately underwent laparoscopic appendectomy during which acute appendicitis was encountered. The appendix was retrocecal and retroperitoneal and required release from the peritoneum. The next day after the operation the patient was started on clear liquid diet, but he started vomiting. Initially, the patient was placed on NPO, on IV fluids, but he continued vomiting and did not respond to Zofran. Finally, it was decided he was having watery diarrhea and finally a CAT scan of the abdomen was obtained, which was . The patient was continued on conservative treatment. Finally he was started on Flagyl and his condition gradually improved. Two days ago, again he was started on clear liquid diet, which he tolerated very well and his diet was gradually advanced to the regular diet. At the time of discharge, the patient was tolerating regular diet and he was having a soft bowel movement and his chest was clear. Abdomen was soft and flat without tenderness, and his WBC was normal, so he was discharged home to be followed in my office in one week. DISCHARGE INSTRUCTION: The patient was instructed of the diet, activity, and . DISCHARGE CONDITION: The patient at the time of discharge improved. DISCHARGE MEDICATION: Tylenol. FOLLOWUP: In the office in 1 week. Beatrice Olivarez M.D. DR: Michael JOB#: [id number] CC:
--- NOTE | 2017-03-04 04:59 | Discharge Summary 2 SIG ---
DATE OF ADMISSION: 02/22/2017 DATE OF DISCHARGE: 03/02/2017 CONSULTANTS: 1. Beatrice Olivarez M.D. 2. Keisha Myers M.D. 3. Elsy Bettencourt M.D. BRIEF HOSPITAL COURSE: The patient is a 46-year-old male, who came in with abdominal pain, nausea and chills that has been ongoing for the past 4 days. There was increased in pain and radiation to the right quadrant. On evaluation at ED, he had elevated WBC count. Lipase was normal. UA showed RBCs otherwise unremarkable. CT of the abdomen and pelvis showed acute appendicitis without perforation and core abscess. He was started on IV Zosyn. Surgery was consulted. He underwent laparoscopic appendectomy on 02/22/2017 and was followed by Dr. Myers and Dr. Bettencourt postoperatively. He was continued with Zosyn. He was given pain management and IV hydration. Postoperatively, he had episodes of vomiting and watery diarrhea. He was given antiemetics and proton pump inhibitors and was continued on NPO. Repeat CT of the abdomen showed ileus with no evidence of perforation or leak. C. diff was negative. He was eventually started with p.o. diet on postop day #6. There were no further vomiting and stools were more firm. Postop day #7, he was tolerating full liquids and was eventually discharged home on 03/02/2017 improved with no further vomiting and tolerating diet. FINAL DIAGNOSES: 1. Acute appendicitis status post laparoscopic appendectomy. 2. Postoperative ileus. Kay Martinez M.D. I have been assigned to dictate discharge summary on this account and I was not involved in the patient's management. Lakeisha Moses N.P. DR: NIC JOB#: [id number] CC:
== END 2017-03-02 14:00 | disposition home or self-care (01) | DRG 854 ==
LOC: EMR 15:25 → EDBEDREQ 19:53 → 3E 20:22
PROC: 0DTJ4ZZ Resection of Appendix, Percutaneous Endoscopic Approach (ICD-10-PCS; principal; 2017-02-22 20:30)
DX: A41.9 Sepsis, unspecified organism (principal); K35.80 Unspecified acute appendicitis; E87.1 Hypo-osmolality and hyponatremia; K56.7 Ileus, unspecified
CPT/HCPCS: 36415; 74000; 74176; 74177; 76700; 80048; 80053; 81003; 83690; 85025; 86140; 87324; 93005; 94003; 94150; C9399; J2250; J2405; J2710; J2765